=== PATIENT | male | born 1945 | race Caucasian/White ===

== ENCOUNTER 2019-07-17 09:13 | Outpatient (CLI) | payer MEDICARE, SELFPAY ==
[2019-07-17 09:40] LABS: Hematocrit 41.5 % (42.0-52.0); Mean Corpuscular HGB Conc 33.7 g/dl (32-36); Mean Corpuscular Hemoglobin 32.1 pg (26-34); Mean Corpuscular Volume 95.2 fl (80-100); Mean Platelet Volume 9.6 fl (7.4-10.4); Platelet Count Result 176 k/mm3 (150-375); Red Blood Count 4.36 M/mm3 (4.6-6.20); Red Cell Distribution Width 13.7 % (11.5-14.5)
[2019-07-17 10:06] LABS: Alanine Aminotransferase 17 U/L (4-50); Alkaline Phosphatase 53 U/L (38-126); Aspartate Amino Transferase 22 U/L (17-59); Bilirubin,Total 0.2 mg/dL (0.2-1.3); Blood Urea Nitrogen 14 mg/dL (9-20); Carbon Dioxide 29 mmol/L (22-30); Chloride 106 mmol/L (98-107); Cholesterol 139 mg/dL (0-200); Estimated Glomerular Filt Rate > 60; Glucose 111 mg/dL (75-110); HDL Direct 38 mg/dL; Potassium 4.3 mmol/L (3.4-5.0); Sodium 139 mmol/L (137-145); Triglycerides 119 mg/dL (<150)
[2019-07-17 10:17] LABS: LDL Cholesterol Direct 81 mg/dL
[2019-07-17 10:35] LABS: Prostate Specific Antigen 0.4 ng/mL (< OR = 4.0)
== END 2019-07-17 09:14 | disposition home or self-care (01) ==
PROVIDERS: PCP Internal Medicine; Visit Provider Physician Assistant
DX: R53.83 Other fatigue (principal); R35.1 Nocturia; E78.5 Hyperlipidemia, unspecified
CPT/HCPCS: 36415; 80053; 80061; 84153; 84443; 85027

== ENCOUNTER 2019-08-26 08:16 | Outpatient (CLI) | payer MEDICARE, SELFPAY ==
--- NOTE | ~2019-08-26 | US_ITS ---
EXAMINATION: US art doppler w press LE BI DATE: 08/26/2019 08:55 INDICATION: Claudication TECHNIQUE: Segmental pressures and plethysmographic and Doppler waveforms of the brachial and lower e xtremity arteries were obtained. COMPARISON: None. FINDINGS: Right and left brachial artery pressures of 123 mm Hg and 124 mm Hg, respectively, are concordant (no rmal difference <= 30 mmHg). The right and left high-thigh pressure indices are 1.11 and 1.17, respec tively (normal > 1.2). The right ankle-brachial index (AIDEN) is 1.15 (normal >= 0.9-1). The right great toe-brachial index (T BI) is 0.53 (normal >= 0.6-0.8). The right lower extremity segmental pressure gradients are normal (n ormal gradients <= 20-30 mmHg between adjacent levels on the same leg or the same levels on the two l egs). Arterial waveforms are triphasic at the right common femoral and superficial femoral arteries a nd biphasic at the remaining arteries with brisk systolic upstrokes throughout. The left AIDEN is 1.31. The left TBI is 0.95. The left lower extremity segmental pressure gradients are increased between the left dorsalis pedis artery and the more proximal [id number] left popliteal artery, the left posterior tibial artery and the contralateral right dorsalis pedis artery. Arterial waveforms are triphasic at the left common femoral and superficial femoral arteries and biphasic in the remaining arteries with brisk systolic upstrokes throughout. IMPRESSION: 1. Mild arterial occlusive disease to the bilateral lower limbs with normal bilateral ABIs but minima lly decreased bilateral high thigh pressure indices and mildly decreased right toe brachial index. Reviewed, dictated and finalized at location A. IMPRESSION: 1. Mild arterial occlusive disease to the bilateral lower limbs with normal sanchez ateral ABIs but minimally decreased bilateral high thigh pressure indices and m ildly decreased right toe brachial index.
== END 2019-08-26 08:17 | disposition home or self-care (01) ==
PROVIDERS: PCP Internal Medicine; Visit Provider Internal Medicine Cardiovascular Disease
DX: I73.9 Peripheral vascular disease, unspecified (principal)
CPT/HCPCS: 93923

== ENCOUNTER 2020-01-13 08:40 | Outpatient (CLI) | payer MEDICARE, SELFPAY ==
[2020-01-13 09:00] LABS: Basophils Absolute Auto 0.1 K/mm3 (0.0-0.1); Basophils Percent Auto 0.8 % (0.2-1.2); Eosinophils Absolute Auto 0.3 K/mm3 (0-0.3); Eosinophils Percent Auto 5.1 % (0-4.4); Hematocrit 42.3 % (42.0-52.0); Hemoglobin 14.4 g/dL (14.0-18.0); Immature Granulocyte Absolute 0.01 K/mm3 (0.00-0.031); Immature Granulocyte Percent A 0.2 % (0-0.5); Lymphocytes Absolute Auto 2.14 K/mm3 (0.9-3.2); Lymphocytes Percent Auto 36.1 % (18.3-44.2); Mean Corpuscular Hemoglobin 32.4 pg (26-34); Mean Corpuscular Volume 95.1 fl (80-100); Mean Platelet Volume 9.1 fl (7.4-10.4); Monocytes Absolute Auto 0.5 K/mm3 (0.1-0.6); Monocytes Percent Auto 9.1 % (2.6-8.5); Neutrophils Absolute Auto 2.9 K/mm3 (1.3-6.7); Neutrophils Percent Auto 48.7 % (45.5-73.1); Platelet Count Result 177 k/mm3 (150-375); Red Blood Count 4.45 M/mm3 (4.6-6.20); Red Cell Distribution Width 13.1 % (11.5-14.5); White Blood Count 5.9 K/mm3 (4.5-10.0)
[2020-01-13 09:19] LABS: Alanine Aminotransferase 23 U/L (4-50); Alkaline Phosphatase 49 U/L (38-126); Anion Gap 6 mmol/L (8-16); Aspartate Amino Transferase 24 U/L (17-59); Bilirubin,Total 0.4 mg/dL (0.2-1.3); Blood Urea Nitrogen 13 mg/dL (9-20); Calcium 9.6 mg/dL (8.4-10.2); Carbon Dioxide 28 mmol/L (22-30); Chloride 106 mmol/L (98-107); Cholesterol 105 mg/dL (0-200); Estimated Glomerular Filt Rate 59; Glucose 123 mg/dL (75-110); HDL Direct 35 mg/dL; Potassium 4.4 mmol/L (3.4-5.0); Sodium 140 mmol/L (137-145); Triglycerides 111 mg/dL (<150)
[2020-01-13 09:29] LABS: LDL Cholesterol Direct 46 mg/dL
[2020-01-13 10:24] LABS: Folic Acid 6.6 ng/mL (2.76->20)
== END 2020-01-13 08:41 | disposition home or self-care (01) ==
PROVIDERS: PCP Internal Medicine; Visit Provider Internal Medicine
DX: R73.9 Hyperglycemia, unspecified (principal); I10 Essential (primary) hypertension; R53.83 Other fatigue
CPT/HCPCS: 36415; 80053; 80061; 82607; 82746; 83036; 84443; 85025

== ENCOUNTER 2020-07-06 09:08 | Outpatient (CLI) | payer MEDICARE, SELFPAY ==
[2020-07-06 09:52] LABS: Basophils Absolute Auto 0.1 K/mm3 (0.0-0.1); Basophils Percent Auto 0.8 % (0.2-1.2); Eosinophils Absolute Auto 0.3 K/mm3 (0-0.3); Eosinophils Percent Auto 4.8 % (0-4.4); Hematocrit 47.1 % (42.0-52.0); Hemoglobin 15.3 g/dL (14.0-18.0); Immature Granulocyte Absolute 0.02 K/mm3 (0.00-0.031); Immature Granulocyte Percent A 0.3 % (0-0.5); Lymphocytes Absolute Auto 2.18 K/mm3 (0.9-3.2); Lymphocytes Percent Auto 36.3 % (18.3-44.2); Mean Corpuscular HGB Conc 32.5 g/dl (32-36); Mean Corpuscular Hemoglobin 31.2 pg (26-34); Mean Corpuscular Volume 96.1 fl (80-100); Mean Platelet Volume 9.9 fl (7.4-10.4); Monocytes Absolute Auto 0.6 K/mm3 (0.1-0.6); Monocytes Percent Auto 9.3 % (2.6-8.5); Neutrophils Absolute Auto 2.9 K/mm3 (1.3-6.7); Neutrophils Percent Auto 48.5 % (45.5-73.1); Platelet Count Result 202 k/mm3 (150-375); Red Cell Distribution Width 13.2 % (11.5-14.5)
[2020-07-06 10:00] LABS: Hemoglobin A1C 6.7 % (<5.7)
[2020-07-06 10:02] LABS: Alanine Aminotransferase 23 U/L (4-50); Albumin Level 4.4 g/dL (3.5-5.1); Alkaline Phosphatase 56 U/L (38-126); Anion Gap 4 mmol/L (8-16); Aspartate Amino Transferase 23 U/L (17-59); Bilirubin,Total 0.3 mg/dL (0.2-1.3); Blood Urea Nitrogen 17 mg/dL (9-20); Calcium 10.4 mg/dL (8.4-10.2); Carbon Dioxide 31 mmol/L (22-30); Chloride 106 mmol/L (98-107); Cholesterol 148 mg/dL (0-200); Estimated Glomerular Filt Rate 59; Glucose 125 mg/dL (75-110); HDL Direct 45 mg/dL; Potassium 4.5 mmol/L (3.4-5.0); Sodium 141 mmol/L (137-145); Triglycerides 151 mg/dL (<150)
[2020-07-06 10:13] LABS: LDL Cholesterol Direct 81 mg/dL
[2020-07-06 10:33] LABS: Prostate Specific Antigen 0.6 ng/mL (< OR = 4.0)
[2020-07-06 11:07] LABS: Folic Acid 5.4 ng/mL (2.76->20)
== END 2020-07-06 09:09 | disposition home or self-care (01) ==
PROVIDERS: PCP Internal Medicine; Visit Provider Internal Medicine
DX: R53.83 Other fatigue (principal); R73.9 Hyperglycemia, unspecified; E78.5 Hyperlipidemia, unspecified; Z12.5 Encounter for screening for malignant neoplasm of prostate
CPT/HCPCS: 36415; 80053; 80061; 82607; 82746; 83036; 84153; 84443; 85025; G0103

== ENCOUNTER 2020-09-26 14:00 | Observation (INO) | payer MEDICARE, SELFPAY ==
[2020-09-26] VITALS (9 sets, daily range): BP systolic 125–154; BP diastolic 47–89; PULSE 54–94; RESP 16–26; TEMP 36.8–36.9; O2SAT 96–100
--- NOTE | ~2020-09-26 | XR_ITS ---
EXAMINATION: XR chest 2V EXAM DATE: 09/26/2020 14:11 INDICATION: Chest pain, history of heart stents. TECHNIQUE: Frontal and lateral projections of the chest obtained and reviewed. Comparison is made to prior examination from 04/04/2016. FINDINGS: Moderate hyperinflation. No confluent consolidation, pneumothorax or pleural effusion susp ected. Cardiomediastinal silhouette is normal. There are no osseous abnormalities identified. IMPRESSION: Moderate hyperinflation. Reviewed, dictated and finalized at location B. IMPRESSION: Moderate hyperinflation.
--- NOTE | ~2020-09-26 | NM_ITS ---
EXAMINATION: NM kyaw stress w perfusion DATE: 09/27/2020 12:56 INDICATION: Chest pain TECHNIQUE: Rest images were obtained following intravenous administration of 9.67 mCi Tc99m tetrofosm in (Myoview). The patient was infused intravenously with Lexiscan (Regadenoson). Then, 31.56 mCi Tc99 m tetrofosmin (Myoview) was administered intravenously, and stress images were obtained. Data was rec onstructed into short axis and horizontal and vertical long axis SPECT images. Gated SPECT images wer e also obtained. COMPARISON: None. FINDINGS: There is no definite reversible or fixed perfusion abnormality to suggest ischemia or infar ction. There is normal left ventricular chamber size, wall motion and ejection fraction. Left ventr icular ejection fraction measures >70%. IMPRESSION: 1. Normal myocardial perfusion at rest and during stress. 2. Left ventricular ejection fraction measuring >70%. Reviewed, dictated and finalized at location A.
--- NOTE | 2020-09-26 14:01 | ECG_ITS ---
Measurements Intervals [place] Rate: 89 P: 61 MO: 158 QRS: -80 QRSD: 78 T: 52 QT: 338 QTc: 413 Interpretive Statements SINUS RHYTHM LEFT ANTERIOR FASCICULAR BLOCK EARLY PRECORDIAL R/S TRANSITION ABNORMAL ECG Electronically Signed On 09-26-2020 14:58:28 CDT by Kobe Mack D.O.
[2020-09-26 14:16] LABS: Basophils Absolute Auto 0.1 K/mm3 (0.0-0.1); Basophils Percent Auto 0.7 % (0.2-1.2); Eosinophils Absolute Auto 0.1 K/mm3 (0-0.3); Eosinophils Percent Auto 1.2 % (0-4.4); Hematocrit 48.3 % (42.0-52.0); Hemoglobin 16.2 g/dL (14.0-18.0); Immature Granulocyte Absolute 0.03 K/mm3 (0.00-0.031); Immature Granulocyte Percent A 0.3 % (0-0.5); Lymphocytes Absolute Auto 2.96 K/mm3 (0.9-3.2); Lymphocytes Percent Auto 28.2 % (18.3-44.2); Mean Corpuscular HGB Conc 33.5 g/dl (32-36); Mean Corpuscular Hemoglobin 31.5 pg (26-34); Mean Corpuscular Volume 93.8 fl (80-100); Mean Platelet Volume 9.9 fl (7.4-10.4); Monocytes Absolute Auto 0.7 K/mm3 (0.1-0.6); Monocytes Percent Auto 6.9 % (2.6-8.5); Neutrophils Absolute Auto 6.6 K/mm3 (1.3-6.7); Neutrophils Percent Auto 62.7 % (45.5-73.1); Platelet Count Result 209 k/mm3 (150-375); Red Blood Count 5.15 M/mm3 (4.6-6.20); Red Cell Distribution Width 13.1 % (11.5-14.5); White Blood Count 10.5 K/mm3 (4.5-10.0)
[2020-09-26 14:32] LABS: Anion Gap 11 mmol/L (8-16); Blood Urea Nitrogen 15 mg/dL (9-20); Calcium 9.9 mg/dL (8.4-10.2); Carbon Dioxide 23 mmol/L (22-30); Chloride 104 mmol/L (98-107); Estimated CRCL calculation 48 ml/min; Estimated Glomerular Filt Rate 59; Glucose 122 mg/dL (65-110); Potassium 3.9 mmol/L (3.4-5.0); Sodium 138 mmol/L (137-145)
[2020-09-26 14:43] LABS: Troponin I < 0.012 ng/mL (0.000-0.034)
[2020-09-26 14:46] LABS: INR 0.9; Prothrombin Time 12.4 Seconds (11.1-14.7)
[2020-09-26 14:47] LABS: Partial Thromboplastin Time 32.7 SECONDS (22.3-36.8)
--- NOTE | 2020-09-26 17:59 | ED.CHESTPAIN ---
HPI - Chest Pain General Chief Complaint: Chest Pain Stated Complaint: chest tightness Time Seen by Provider: 09/26/20 17:28 Source: patient Mode of arrival: ambulatory Limitations: no limitations History of Present Illness HPI narrative: This is a 75 year old male that presents to the ER for an episode of chest pain today. Reports he was mowing the lawn. He started to have substernal chest tightness. This lasted for about 10 minutes and was relieved with rest. His medical technologist prn is Dr. Glover. His last stress test was in 2015. He does have history of a stent placed in 2005. Patient denies any current chest pain. Denies fever, cough, shortness of breath, nausea or vomiting. Related Data Home Medications Medication Instructions Recorded Confirmed aspirin 81 mg tablet,delayed 81 mg PO DAILY 01/17/19 07/14/20 release cholecalciferol (vitamin D3) 1,250 50,000 unit PO WEEKLY 01/17/19 07/14/20 mcg (50,000 unit) capsule clopidogrel 75 mg tablet 75 mg PO DAILY 01/17/19 07/14/20 fluticasone propionate 50 2 spray NASAL DAILY 01/17/19 07/14/20 mcg/actuation nasal spray,suspension garlic 500 mg capsule 500 mg PO DAILY 01/17/19 07/14/20 hydrocortisone 1 % topical cream 1 applic TOPICAL BID PRN 01/17/19 07/14/20 nitroglycerin 0.4 mg sublingual 0.4 mg SUBLINGUAL Q5M PRN 01/17/19 07/14/20 tablet omega-3 fatty acids 1,000 mg 1,000 mg PO DAILY 01/17/19 07/14/20 capsule rosuvastatin 40 mg tablet 40 mg PO DAILY 01/17/19 07/14/20 Allergies Allergy/AdvReac Type Severity Reaction Status Date / Time bacitracin Allergy Intermediate blisters Verified 07/13/20 09:58 bupropion Allergy Intermediate Rash Verified 07/13/20 09:58 neomycin Allergy Intermediate blisters Verified 07/13/20 09:58 polymyxin B Allergy Intermediate blisters Verified 07/13/20 09:58 latex Allergy Unknown blisters Verified 07/13/20 09:58 BUPROPION HCL Allergy Intermediate SWELLING Uncoded 07/13/20 09:58 Review of Systems Review of Systems: Narrative: CONSTITUTIONAL: Denies fever CARDIOVASCULAR: Reports chest pain. Denies edema. RESPIRATORY: Denies cough or dyspnea. GASTROINTESTINAL: Denies nausea, vomiting All systems reviewed & are unremarkable except as noted in HPI and below PMFSH Past Medical History Medical History (Updated 09/26/20 @ 18:13 by Jamila Liu PA-C) Coronary artery disease Dyslipidemia Essential (primary) hypertension Tobacco abuse Family History Family History Mother Family history of Alzheimer's disease Patient's mother is Sibling Family history of diabetes mellitus in first degree relative Patient's brother is Father Patient's father is Family history of Alzheimer's disease Social History Social History Smoking packs per day: 1 Smoking cigarettes per day: 20.0 Smoking status: Current every day smoker Tobacco type: cigarettes Second hand tobacco smoke exposure: No Alcohol intake: never Substance use: never Exam Narrative: Exam Narrative: GENERAL: Well-appearing, well-nourished, and in no acute distress. HEAD: Normocephalic, atraumatic. EYES: EOMI. ENT: Mucous membranes moist. Oropharynx without tonsillar hypertrophy exudate or other lesions. NECK: Supple. No adenopathy or masses. No carotid bruits or JVD CHEST: Clear to auscultation. No respiratory distress. No wheezes rales or rhonchi HEART: Regular rate and rhythm. No murmur heard. Normal peripheral pulses. EXTREMITIES: Normal range of motion. No edema. SKIN: Warm, dry, no rash. NEURO: No focal deficits. Alert and oriented x3. PSYCH: Normal mood and affect Course Consultations Consultation #1: Spoke with Dr. Mack about patient and work-up who agrees with admission for further cardiac workup Date: 09/26/20 Time: 18:30 Vital Signs Vital signs: Vital Signs Temperature 98.3 F 09/26/20 14:
[2020-09-26 18:06] LABS: Troponin I 0.017 ng/mL (0.000-0.034)
[2020-09-26 22:48] LABS: Troponin I 0.038 ng/mL (0.000-0.034)
[2020-09-27] VITALS (11 sets, daily range): BP systolic 109–118; BP diastolic 59–76; PULSE 48–97; RESP 12–18; TEMP 36.3–37; O2SAT 98–100; BMI 26.6
--- NOTE | 2020-09-27 | ECHO_ITS ---
Patient Info Name: Des Lockwood Age: 75 years : 1945 Gender: Male Ht: 69 in Wt: 185 lbs BSA: 2.04 m2 HR: 50 bpm BP: 109 / 59 mmHg Technical Quality: Fair Exam Date: 09/27/2020 8:25 AM Exam Location: [facility] Pulmonary Patient Status: Outpatient Admit Date: 09/26/2020 Staff Ordering Physician: Kobe Mack DO Swatch Cutter: Viola Engel RDCS Attending Provider: Kobe aMck DO Referring Physician: Frederick WILD; Exam Type: CA echo doppler color flow Study Info Indications R07.89 - Other chest pain Complete two-dimensional, color flow and Doppler transthoracic echocardiogram is performed. Summary 1. Complete two-dimensional, color flow and Doppler transthoracic echocardiogram is performed. 2. Left ventricular chamber dimension is normal. 3. Left ventricular systolic function is normal, estimated at 60-65%. 4. The left ventricular diastolic function is normal. 5. E/e' 9 is minimally elevated. 6. Global longitudinal strain is normal at -17.2%. 7. No pulmonary hypertension, estimated pulmonary arterial systolic pressure is 16 mmHg. Left Ventricle E/e' 9 is minimally elevated. Global longitudinal strain is normal at -17.2%. Left ventricular chamber dimension is normal. Left ventricular systolic function is normal, estimated at 60-65%. The left ventricular diastolic function is normal. Right Ventricle Right ventricular chamber dimension is normal. Right ventricular systolic function is normal. Left Atria Left atrial chamber dimension is normal. Right Atria Right atrial chamber dimension is normal. Aortic Valve The aortic valve is trileaflet. There is no aortic valve stenosis. There is no aortic valve regurgitation. Pulmonic Valve There is no pulmonic regurgitation. Mitral Valve There is no mitral valve stenosis. There is no mitral valve regurgitation. Tricuspid Valve There is no tricuspid valve regurgitation. No pulmonary hypertension, estimated pulmonary arterial systolic pressure is 16 mmHg. Pericardium/Pleural There is no pericardial effusion. Inferior Vena Cava Normal inferior vena cava with >50% collapse upon inspiration consistent with normal right atrial pressure, 5 mmHg. Aorta The aortic root size at the sinus of Valsalva is normal. Left Ventricular Outflow Tract Name Value Normal LVOT 2D LVOT Diameter 2.0 cm LVOT Doppler LVOT Peak Gradient 2 mmHg LVOT Mean Gradient 1 mmHg LVOT VTI 19 cm LVOT VTI/AV VTI Ratio 0.9 LVOT Stroke Volume 58 ml LVOT CO 3.1 l/min LVOT CI 1.5 l/min/m2 Pulmonic Valve Name Value Normal RVOT Doppler RVOT Peak Gradient 1 mmHg
--- NOTE | 2020-09-27 | EST_ITS ---
Patient Info Name: Des Lockwood Age: 75 years : 1945 Gender: Male Ht: 69 in Wt: 178 lbs BSA: 2.00 m2 HR: 50 bpm BP: 133 / 72 mmHg Exam Date: 09/27/2020 11:47 AM Exam Location: [facility] Stress Patient Status: Outpatient Admit Date: 09/26/2020 Staff Ordering Physician: Kobe Mack DO Attending Provider: Kobe Mack DO Exercise Technologist: Vesna Shine CT Exercise Physician: Kobe Mack DO Exam Type: CA stress kyaw w NM Study Info A regadenoson stress test was performed. Summary 1. 1. Negative lexiscan stress test for ischemic ST changes by ECG criteria. 2. 2. Stable hemodynamics throughout the test. 3. 3. Nuclear scan to follow and will be reported separately. Please correlate with it. 4. 4. Patiet informed of the above results. Protocol: Lexiscan Stress ECG Details Stage: REST Duration (min): 1 min : 49 sec HR (bpm): 51 SBP (mmHg): 133 DBP (mmHg): 72 Stage: REST Duration (min): 4 min : 39 sec HR (bpm): 68 SBP (mmHg): 133 DBP (mmHg): 72 Stage: STAGE 1 Duration (min): 0 min : 59 sec HR (bpm): 62 SBP (mmHg): 137 DBP (mmHg): 75 Stage: RECOVERY Duration (min): 1 min : 0 sec HR (bpm): 92 SBP (mmHg): 137 DBP (mmHg): 75 Stage: RECOVERY Duration (min): 2 min : 0 sec HR (bpm): 91 SBP (mmHg): 136 DBP (mmHg): 73 Stage: RECOVERY Duration (min): 2 min : 9 sec HR (bpm): 93 SBP (mmHg): 136 DBP (mmHg): 73 Rest HR: 68 bpm Peak HR: 96 bpm Rest Sys BP: 133 mmHg Peak Sys BP: 137 mmHg Max Pred HR: 146 bpm % Max Pred HR: 66 % Target HR: 124 bpm Max RPP: 13,152 bpm*mmHg Termination Reason: Completed protocol Cardiac Symptoms: Shortness of breath Total Time: 1 min : 0 sec Rest Roberto BP: 72 mmHg Peak Roberto BP: 75 mmHg Total Dose: 0.4 mg Resting ECG Sinus rhythm. Stress ECG No ST changes. Arrhythmias None. Report Signatures
[2020-09-27] MEDS: LOSARTAN POTASSIUM 50 MG TABLET PO (00:58)
[2020-09-27] MEDS: ROSUVASTATIN 10 MG TABLET 40 MG PO (00:58)
[2020-09-27] MEDS: AZELASTINE HCL NASAL 0.1% 137 MCG/SPR 30 ML BTL 2 SPRAY NASAL ×2 (00:59→09:32)
--- NOTE | 2020-09-27 01:06 | PC.NURSE ---
Pt having no c/o cp at this time. Has not had betablocker today, but HR is hovering arund 48-49. Will hold and monitor.
--- NOTE | 2020-09-27 02:54 | PC.NURSE ---
This patient, Des Lockwood Jr., was admitted to IMU Room 209-01. Patient/family oriented to hospital policies and general routines including ID bracelet, bed and alarms, visiting hours, pain management, procedures, bathroom and other care routines, personal items, smoking policy, room service/diet, and visiting hours. Information on how to activate the Rapid Response Team has been discussed. Patient/Family are encouraged to report perceived risks to care and to ask questions if they do not understand what they are told or what they should do.
--- NOTE | 2020-09-27 07:46 | PM.IMHP ---
H&P: HPI History of Present Illness Date/Time: 09/27/20 07:46 Reason for admit: Chest pain. 75 yr old man who's PCP is Dr. Jimenez and my regular cardiology patient is admitted for chest pain. He has a history of PAD, hypertension, dyslipidemia, CAD. States yesterday while mowing grass in the heat he noted chest tightness across his chest. It lasted about 10 minutes but he was concerned so he came in to ER. No recurrence since admission. Troponin peaked at 0.038 and came down. EKG shows no acute ST changes. CXR shows hyperinflation. Reports he can walk 2 miles without any problems, but more than that and he may notice leg cramps. Admits to smoking 1 ppd. Denies chest pain, sob, orthopnea, PND, edema, palpitations, dizziness. Cardiovascular Procedures Veterinary Medicine Scientist:: 10/03/05 Had DE. LAD stented. Electrophysiology:: 09/27/20 EKG: Sinus rhythm, LAFB. 04/14/20 EKG: Sinus rhythm. Stress Tests:: 08/26/19 Arterial duplex/AIDEN: Right AIDEN 1.1, TBI 0.53 [0.6-0.8]. Left AIDEN 1.3, TBI 0.75. Decreased bilateral thigh pressure indices s/o PAD. Chief Complaint: Chest pain Review of Systems Review of Systems: All systems reviewed & are unremarkable except as noted in HPI and below Constitutional: Constitutional: Reports as per HPI, Denies chills and Denies fever(s) Cardiovascular: Cardiovascular: Reports as per HPI, Reports chest pain, Reports claudication, Denies lightheadedness and Denies dyspnea on exertion Respiratory: Respiratory: Reports as per HPI and Denies dyspnea Gastrointestinal: Gastrointestinal: Reports as per HPI and Denies abdominal pain Genitourinary: Genitourinary: Reports as per HPI and Denies dysuria Musculoskeletal: Musculoskeletal: Reports as per HPI Neurologic: Reports as per HPI, Denies dizziness and Denies syncope [facility] Past Medical History Medical History (Updated 09/27/20 @ 07:53 by Kobe Mack DO) Coronary artery disease Dyslipidemia Essential (primary) hypertension Tobacco abuse Family History Family History Mother Family history of Alzheimer's disease Patient's mother is Sibling Family history of diabetes mellitus in first degree relative Patient's brother is Father Patient's father is Family history of Alzheimer's disease Social History Social History Smoking packs per day: 1 Smoking cigarettes per day: 20.0 Years smoked: 50 Smoking pack-years: 50.00 Smoking status: Current every day smoker Tobacco type: cigarettes Second hand tobacco smoke exposure: No Alcohol intake: former Substance use: never Substance use type: marijuana Other substance usage details: used to be a heavy drinker, no drinks in 7-8 years Last use: 1 month ago Spiritual care concerns: No Meds Home Medications and Allergies Home Medications Medication Instructions Recorded Confirmed Type aspirin 81 mg tablet,delayed 81 mg PO QPM 01/17/19 09/26/20 History release hydrocortisone 1 % topical cream 1 applic TOPICAL BID PRN 01/17/19 09/26/20 History nitroglycerin 0.4 mg sublingual 0.4 mg SUBLINGUAL Q5M PRN 01/17/19 09/26/20 History tablet omega-3 fatty acids 1,000 mg 1,000 mg PO DAILY 01/17/19 09/26/20 History capsule rosuvastatin 40 mg tablet 40 mg PO QPM 01/17/19 09/26/20 History sildenafil (pulm.hypertension) 20 See Rx Instructions PO DAILY PRN 06/03/19 09/26/20 Rx mg tablet #90 tablet azelastine 137 mcg (0.1 %) nasal 2 spray NASAL Q12H #30 ml 01/09/20 09/26/20 Rx spray aerosol cholecalciferol (vitamin D3) 5,000 unit PO DAILY 09/26/20 09/26/20 History [Vitamin D3] losartan 50 mg PO QPM 09/26/20 09/26/20 History metoprolol tartrate 25 mg PO QPM 09/26/20 09/26/20 History Allergies Allergy/AdvReac Type Severity Reaction Status Date / Time alprazolam Allergy Intermediate Swelling Verified 09/26/20 22:49 bacitracin A
[2020-09-27] MEDS: CHOLECALCIFEROL 1,000 UNITS TABLET 5000 UNITS PO (09:32)
[2020-09-27] MEDS: CLOPIDOGREL BISULFATE 75 MG TABLET PO (09:32)
[2020-09-27] MEDS: OMEGA 3 POLYUNSAT FATTY ACIDS 1 GM CAP PO (09:37)
== END 2020-09-27 16:00 | disposition home or self-care (01) ==
LOC: ANHED 18:29 → ANHIMU 19:26 → ANHICU 22:58 → ANHIMU 23:09
PROVIDERS: Admitting Provider Internal Medicine Cardiovascular Disease; Emergency Provider Emergency Medicine; PCP Internal Medicine; Visit Provider Internal Medicine Cardiovascular Disease
DX: R07.9 Chest pain, unspecified (principal); I25.10 Atherosclerotic heart disease of native coronary artery without angina pectoris; I10 Essential (primary) hypertension; E78.5 Hyperlipidemia, unspecified; I73.9 Peripheral vascular disease, unspecified; F17.210 Nicotine dependence, cigarettes, uncomplicated; Z95.5 Presence of coronary angioplasty implant and graft; Z79.82 Long term (current) use of aspirin; Z79.02 Long term (current) use of antithrombotics/antiplatelets
CPT/HCPCS: 36415; 71046; 78452; 80048; 84484; 85025; 85610; 85730; 93005; 93017; 93306; 99285; A9270; A9502; G0378; J2785

== ENCOUNTER 2021-01-17 08:47 | Outpatient (CLI) | payer MEDICARE, SELFPAY ==
[2021-01-17 09:13] LABS: Alanine Aminotransferase 18 U/L (4-50); Albumin Level 4.4 g/dL (3.5-5.1); Alkaline Phosphatase 59 U/L (38-126); Anion Gap 8 mmol/L (8-16); Aspartate Amino Transferase 22 U/L (17-59); Bilirubin,Total 0.4 mg/dL (0.2-1.3); Blood Urea Nitrogen 17 mg/dL (9-20); Calcium 9.7 mg/dL (8.4-10.2); Carbon Dioxide 28 mmol/L (22-30); Chloride 102 mmol/L (98-107); Cholesterol 135 mg/dL (0-200); Estimated Glomerular Filt Rate > 60; Glucose 123 mg/dL (65-110); HDL Direct 38 mg/dL; Potassium 4.1 mmol/L (3.4-5.0); Sodium 138 mmol/L (137-145); Triglycerides 101 mg/dL (<150)
[2021-01-17 09:24] LABS: Hemoglobin A1C 6.1 % (<5.7); LDL Cholesterol Direct 75 mg/dL
== END 2021-01-17 08:48 | disposition home or self-care (01) ==
LOC: ANHLAB 08:49
PROVIDERS: PCP Internal Medicine; Visit Provider Internal Medicine
DX: R73.9 Hyperglycemia, unspecified (principal); E78.5 Hyperlipidemia, unspecified
CPT/HCPCS: 36415; 80053; 80061; 83036

== ENCOUNTER 2021-07-10 08:45 | Outpatient (CLI) | payer MEDICARE, SELFPAY ==
[2021-07-10 09:15] LABS: Basophils Percent Auto 0.4 % (0.2-1.2); Eosinophils Absolute Auto 0.1 K/mm3 (0-0.3); Eosinophils Percent Auto 0.9 % (0-4.4); Hematocrit 40.9 % (42.0-52.0); Hemoglobin 13.3 g/dL (14.0-18.0); Immature Granulocyte Absolute 0.03 K/mm3 (0.00-0.031); Immature Granulocyte Percent A 0.4 % (0-0.5); Lymphocytes Absolute Auto 1.85 K/mm3 (0.9-3.2); Lymphocytes Percent Auto 24.7 % (18.3-44.2); Mean Corpuscular HGB Conc 32.5 g/dl (32-36); Mean Corpuscular Hemoglobin 31.7 pg (26-34); Mean Corpuscular Volume 97.6 fl (80-100); Mean Platelet Volume 9.7 fl (7.4-10.4); Monocytes Absolute Auto 0.8 K/mm3 (0.1-0.6); Monocytes Percent Auto 11.2 % (2.6-8.5); Neutrophils Absolute Auto 4.7 K/mm3 (1.3-6.7); Neutrophils Percent Auto 62.4 % (45.5-73.1); Platelet Count Result 210 k/mm3 (150-375); Red Blood Count 4.19 M/mm3 (4.6-6.20); Red Cell Distribution Width 13.1 % (11.5-14.5); White Blood Count 7.5 K/mm3 (4.5-10.0)
[2021-07-10 09:28] LABS: Alanine Aminotransferase 49 U/L (6-50); Albumin Level 4.1 g/dL (3.5-5.1); Alkaline Phosphatase 55 U/L (38-126); Anion Gap 8 mmol/L (8-16); Aspartate Amino Transferase 41 U/L (17-59); Bilirubin,Total 0.4 mg/dL (0.2-1.3); Blood Urea Nitrogen 20 mg/dL (9-20); Calcium 9.5 mg/dL (8.4-10.2); Carbon Dioxide 29 mmol/L (22-30); Chloride 99 mmol/L (98-107); Cholesterol 158 mg/dL (0-200); Estimated Glomerular Filt Rate > 60; Glucose 127 mg/dL (65-110); HDL Direct 31 mg/dL; Potassium 3.8 mmol/L (3.4-5.0); Sodium 136 mmol/L (137-145); Triglycerides 113 mg/dL (<150)
[2021-07-10 09:38] LABS: LDL Cholesterol Direct 85 mg/dL
[2021-07-10 09:44] LABS: Hemoglobin A1C 5.9 % (<5.7)
[2021-07-10 09:58] LABS: Prostate Specific Antigen 0.4 ng/mL (< OR = 4.0)
[2021-07-10 13:50] LABS: Folic Acid 5.4 ng/mL (2.76->20)
== END 2021-07-10 08:46 | disposition home or self-care (01) ==
LOC: ANHLAB 08:50
PROVIDERS: PCP Internal Medicine; Visit Provider Internal Medicine
DX: E78.5 Hyperlipidemia, unspecified (principal); I10 Essential (primary) hypertension; R53.83 Other fatigue; R73.9 Hyperglycemia, unspecified; Z12.5 Encounter for screening for malignant neoplasm of prostate
CPT/HCPCS: 36415; 80053; 80061; 82607; 82746; 83036; 84153; 84443; 85025; G0103

== ENCOUNTER 2022-01-31 07:53 | Outpatient (CLI) | payer MEDICARE, SELFPAY ==
[2022-01-31 08:32] LABS: Basophils Percent Auto 0.8 % (0.2-1.2); Eosinophils Absolute Auto 0.2 K/mm3 (0-0.3); Eosinophils Percent Auto 4.1 % (0-4.4); Immature Granulocyte Absolute 0.01 K/mm3 (0.00-0.031); Immature Granulocyte Percent A 0.2 % (0-0.5); Lymphocytes Absolute Auto 1.85 K/mm3 (0.9-3.2); Lymphocytes Percent Auto 34.8 % (18.3-44.2); Mean Corpuscular HGB Conc 32.6 g/dl (32-36); Mean Corpuscular Hemoglobin 32.2 pg (26-34); Mean Corpuscular Volume 98.9 fl (80-100); Mean Platelet Volume 9.6 fl (7.4-10.4); Monocytes Absolute Auto 0.5 K/mm3 (0.1-0.6); Monocytes Percent Auto 9.6 % (2.6-8.5); Neutrophils Absolute Auto 2.7 K/mm3 (1.3-6.7); Neutrophils Percent Auto 50.5 % (45.5-73.1); Platelet Count Result 174 k/mm3 (150-375); Red Blood Count 4.35 M/mm3 (4.6-6.20); Red Cell Distribution Width 14.2 % (11.5-14.5); White Blood Count 5.3 K/mm3 (4.5-10.0)
[2022-01-31 08:40] LABS: Alanine Aminotransferase 26 U/L (6-50); Albumin Level 4.1 g/dL (3.5-5.1); Alkaline Phosphatase 53 U/L (38-126); Anion Gap 6 mmol/L (8-16); Aspartate Amino Transferase 26 U/L (17-59); Bilirubin,Total 0.3 mg/dL (0.2-1.3); Blood Urea Nitrogen 13 mg/dL (9-20); Carbon Dioxide 29 mmol/L (22-30); Chloride 105 mmol/L (98-107); Cholesterol 167 mg/dL (0-200); Estimated Glomerular Filt Rate > 60; Glucose 118 mg/dL (65-110); HDL Direct 40 mg/dL; Potassium 4.4 mmol/L (3.4-5.0); Sodium 140 mmol/L (137-145); Triglycerides 105 mg/dL (<150)
[2022-01-31 08:44] LABS: Hemoglobin A1C 6.3 % (<5.7)
[2022-01-31 08:47] LABS: Iron 88 ug/dL (49-181)
[2022-01-31 08:51] LABS: LDL Cholesterol Direct 94 mg/dL
[2022-01-31 08:56] LABS: Percent Iron Saturation 31 % (20-50)
[2022-01-31 09:45] LABS: Folic Acid 3.6 ng/mL (2.76->20)
== END 2022-01-31 07:54 | disposition home or self-care (01) ==
LOC: ANHLAB 07:55
PROVIDERS: PCP Internal Medicine; Visit Provider Internal Medicine
DX: R73.9 Hyperglycemia, unspecified (principal); R53.83 Other fatigue; E78.5 Hyperlipidemia, unspecified; D64.9 Anemia, unspecified
CPT/HCPCS: 36415; 80053; 80061; 82607; 82746; 83036; 83540; 83550; 84443; 85025

== ENCOUNTER 2022-07-27 07:54 | Outpatient (CLI) | payer MEDICARE, SELFPAY ==
[2022-07-27 09:00] LABS: Basophils Absolute Auto 0.1 K/mm3 (0.0-0.1); Basophils Percent Auto 0.8 % (0.2-1.2); Eosinophils Absolute Auto 0.2 K/mm3 (0-0.3); Eosinophils Percent Auto 3.7 % (0-4.4); Hemoglobin 14.6 g/dL (14.0-18.0); Immature Granulocyte Absolute 0.02 K/mm3 (0.00-0.031); Immature Granulocyte Percent A 0.3 % (0-0.5); Lymphocytes Absolute Auto 2.02 K/mm3 (0.9-3.2); Lymphocytes Percent Auto 32.1 % (18.3-44.2); Mean Corpuscular HGB Conc 33.2 g/dl (32-36); Mean Corpuscular Hemoglobin 32.2 pg (26-34); Mean Corpuscular Volume 96.9 fl (80-100); Mean Platelet Volume 9.4 fl (7.4-10.4); Monocytes Absolute Auto 0.6 K/mm3 (0.1-0.6); Monocytes Percent Auto 8.9 % (2.6-8.5); Neutrophils Absolute Auto 3.4 K/mm3 (1.3-6.7); Neutrophils Percent Auto 54.2 % (45.5-73.1); Platelet Count Result 190 k/mm3 (150-375); Red Blood Count 4.54 M/mm3 (4.6-6.20); Red Cell Distribution Width 13.7 % (11.5-14.5); White Blood Count 6.3 K/mm3 (4.5-10.0)
[2022-07-27 09:17] LABS: Hemoglobin A1C 5.7 % (<5.7)
[2022-07-27 09:20] LABS: Alanine Aminotransferase 18 U/L (6-50); Albumin Level 4.1 g/dL (3.5-5.1); Alkaline Phosphatase 55 U/L (38-126); Anion Gap 2 mmol/L (8-16); Aspartate Amino Transferase 22 U/L (17-59); Bilirubin,Total 0.3 mg/dL (0.2-1.3); Blood Urea Nitrogen 15 mg/dL (9-20); Calcium 9.4 mg/dL (8.4-10.2); Carbon Dioxide 33 mmol/L (22-30); Chloride 105 mmol/L (98-107); Cholesterol 172 mg/dL (0-200); Estimated Glomerular Filt Rate > 60; Glucose 112 mg/dL (65-110); HDL Direct 37 mg/dL; Magnesium 2.1 mg/dL (1.6-2.3); Potassium 5.1 mmol/L (3.4-5.0); Sodium 140 mmol/L (137-145); Triglycerides 153 mg/dL (<150)
[2022-07-27 09:22] LABS: Iron 87 ug/dL (49-181)
[2022-07-27 09:31] LABS: LDL Cholesterol Direct 108 mg/dL
[2022-07-27 09:33] LABS: Percent Iron Saturation 33 % (20-50)
[2022-07-27 09:52] LABS: Prostate Specific Antigen 0.9 ng/mL (< OR = 4.0)
[2022-07-27 10:27] LABS: Folic Acid 3.8 ng/mL (2.76->20)
== END 2022-07-27 07:55 | disposition home or self-care (01) ==
PROVIDERS: PCP Internal Medicine; Visit Provider Internal Medicine
DX: E78.5 Hyperlipidemia, unspecified (principal); I10 Essential (primary) hypertension; R53.83 Other fatigue; R73.9 Hyperglycemia, unspecified; D64.9 Anemia, unspecified; Z12.5 Encounter for screening for malignant neoplasm of prostate
CPT/HCPCS: 36415; 80053; 80061; 82607; 82746; 83036; 83540; 83550; 83735; 84153; 84443; 85025; G0103

== ENCOUNTER 2023-02-08 07:51 | Outpatient (CLI) | payer MEDICARE, SELFPAY ==
[2023-02-08 08:55] LABS: Alanine Aminotransferase 17 U/L (6-50); Albumin Level 4.3 g/dL (3.5-5.1); Alkaline Phosphatase 70 U/L (38-126); Anion Gap 4 mmol/L (8-16); Aspartate Amino Transferase 24 U/L (17-59); Bilirubin,Total 0.6 mg/dL (0.2-1.3); Blood Urea Nitrogen 19 mg/dL (9-20); Calcium 9.8 mg/dL (8.4-10.2); Carbon Dioxide 30 mmol/L (22-30); Chloride 104 mmol/L (98-107); Estimated Glomerular Filt Rate > 60; Glucose 114 mg/dL (65-110); Potassium 4.5 mmol/L (3.4-5.0); Sodium 138 mmol/L (137-145)
[2023-02-08 10:08] LABS: Hemoglobin A1C 5.7 % (<5.7)
== END 2023-02-08 07:52 | disposition home or self-care (01) ==
PROVIDERS: PCP Internal Medicine; Visit Provider Physician Assistant
DX: E87.5 Hyperkalemia (principal); R73.9 Hyperglycemia, unspecified
CPT/HCPCS: 36415; 80053; 83036

== ENCOUNTER 2023-05-14 13:33 | Emergency (ER) | payer MEDICARE, SELFPAY ==
[2023-05-14 13:44] VITALS: BP 118/77; PULSE 92; RESP 16; TEMP 37.3; O2SAT 98
--- NOTE | 2023-05-14 13:52 | ED.SKABFB ---
HPI - Skin/Abscess/Foreign Bdy General Chief complaint: Skin/Abscess/Foreign Body Stated complaint: Rash Time Seen by Provider: 05/14/23 13:52 Source: patient Mode of arrival: ambulatory Limitations: no limitations History of Present Illness HPI narrative: 77-year-old male presented for complaint of itchy red rash to his back for 2 weeks. Pt has been using Betamethasone cream as prescribed by PCP, his without significant improvement, then he started Medrol Dosepak on 05/07 per PCP. Denies rash to any other locations. Denies lip, tongue, or throat swelling, shortness of breath or wheezing. Denies changes to soap, detergent, lotion, or any other exposures. No one else in the house or any contacts with similar symptoms. Related Data Home Medications Medication Instructions Recorded Confirmed aspirin 81 mg tablet,delayed 81 mg PO QPM 01/17/19 05/14/23 release (Adult Low Dose Aspirin) hydrocortisone 1 % topical cream 1 applic topical BID PRN eczema 01/17/19 05/14/23 (Cortisone (hydrocortisone)) omega-3 fatty acids 1,000 mg 1,000 mg PO DAILY 01/17/19 05/14/23 capsule (Fish Oil Concentrate) cholecalciferol (vitamin D3) 125 5,000 unit PO DAILY 09/26/20 05/14/23 mcg (5,000 unit) tablet (Vitamin D3) vitamin K2 45 mcg capsule 45 mcg PO DAILY 02/07/22 05/14/23 Allergies Allergy/AdvReac Type Severity Reaction Status Date / Time alprazolam Allergy Intermediate Swelling Verified 05/14/23 13:35 bacitracin Allergy Intermediate blisters Verified 05/14/23 13:35 bupropion Allergy Intermediate Rash Verified 05/14/23 13:35 neomycin Allergy Intermediate blisters Verified 05/14/23 13:35 polymyxin B Allergy Intermediate blisters Verified 05/14/23 13:35 latex Allergy Unknown blisters Verified 05/14/23 13:35 BUPROPION HCL Allergy Intermediate SWELLING Uncoded 05/14/23 13:35 Review of Systems Review of Systems: CONSTITUTIONAL: Denies body aches, fever, chills, or sweats. EYES: Denies visual changes, redness, or discharge. ENT: Denies rhinorrhea, congestion CARDIOVASCULAR: Denies chest pain, palpitations, or edema. RESPIRATORY: Denies cough or dyspnea. GASTROINTESTINAL: Denies abdominal pain, nausea, vomiting, or diarrhea. SKIN: reports rash to back MUSCULOSKELETAL: Denies back pain, joint pain, or myalgia. NEUROLOGIC: Denies headache, numbness, tingling, or weakness. [facility] Past Medical History Medical History Coronary artery disease Dyslipidemia Essential (primary) hypertension Tobacco abuse Family History Family History Mother Family history of Alzheimer's disease Patient's mother is Sibling Family history of diabetes mellitus in first degree relative Patient's brother is Father Patient's father is Family history of Alzheimer's disease Social History Social History Smoking packs per day: 0.5 Smoking cigarettes per day: 10.0 Years smoked: 50 Smoking pack-years: 25.00 Smoking status: Current every day smoker Tobacco type: cigarettes Second hand tobacco smoke exposure: No Alcohol intake: former Substance use: never Substance use type: marijuana Other substance usage details: used to be a heavy drinker, no drinks in 7-8 years Last use: 1 month ago Do You Feel Safe in your Home?: Yes Lack of Transportation: No Lack of Food: Never True Current Housing: I Have Housing Concerned About Future Housing: No Difficulty Paying Gas/Electric Bills: No Difficulty Paying for Meds: No Currently Unemployed: No Education: Trade/Vocational Certificate Difficulty w/ Childcare or Family Care: No Spiritual care concerns: No Comments At time of signature, I have reviewed and agree with nursing past medical, surgical, social and family history unless otherwise noted. Please see
== END 2023-05-14 14:05 | disposition home or self-care (01) ==
PROVIDERS: Emergency Provider Nurse Practitioner Family; PCP Internal Medicine
DX: L25.9 Unspecified contact dermatitis, unspecified cause (principal); I25.10 Atherosclerotic heart disease of native coronary artery without angina pectoris; E78.5 Hyperlipidemia, unspecified; I10 Essential (primary) hypertension; F17.210 Nicotine dependence, cigarettes, uncomplicated; Z79.82 Long term (current) use of aspirin; Z79.899 Other long term (current) drug therapy
CPT/HCPCS: 99213; G0463

== ENCOUNTER 2023-08-14 07:30 | Outpatient (CLI) | payer MEDICARE, SELFPAY ==
[2023-08-14 08:03] LABS: Basophils Percent Auto 0.7 % (0.2-1.2); Eosinophils Absolute Auto 0.1 K/mm3 (0-0.3); Eosinophils Percent Auto 2.4 % (0-4.4); Hematocrit 44.4 % (42.0-52.0); Hemoglobin 14.9 g/dL (14.0-18.0); Immature Granulocyte Absolute 0.02 K/mm3 (0.00-0.031); Immature Granulocyte Percent A 0.3 % (0-0.5); Lymphocytes Absolute Auto 1.83 K/mm3 (0.9-3.2); Lymphocytes Percent Auto 31.2 % (18.3-44.2); Mean Corpuscular HGB Conc 33.6 g/dl (32-36); Mean Corpuscular Hemoglobin 32.6 pg (26-34); Mean Corpuscular Volume 97.2 fl (80-100); Mean Platelet Volume 9.6 fl (7.4-10.4); Monocytes Absolute Auto 0.6 K/mm3 (0.1-0.6); Monocytes Percent Auto 9.5 % (2.6-8.5); Neutrophils Absolute Auto 3.3 K/mm3 (1.3-6.7); Neutrophils Percent Auto 55.9 % (45.5-73.1); Platelet Count Result 196 k/mm3 (150-375); Red Blood Count 4.57 M/mm3 (4.6-6.20); Red Cell Distribution Width 13.4 % (11.5-14.5); White Blood Count 5.9 K/mm3 (4.5-10.0)
[2023-08-14 08:27] LABS: Alanine Aminotransferase 14 U/L (6-50); Albumin Level 4.2 g/dL (3.5-5.1); Alkaline Phosphatase 58 U/L (38-126); Anion Gap 9 mmol/L (4-12); Aspartate Amino Transferase 18 U/L (17-59); Bilirubin,Total 0.5 mg/dL (0.2-1.3); Blood Urea Nitrogen 18 mg/dL (9-20); Calcium 9.6 mg/dL (8.4-10.2); Carbon Dioxide 25 mmol/L (22-30); Chloride 106 mmol/L (98-107); Cholesterol 236 mg/dL (0-200); Estimated Glomerular Filt Rate > 60; Glucose 123 mg/dL (65-110); HDL Direct 37 mg/dL; Potassium 4.3 mmol/L (3.4-5.0); Sodium 140 mmol/L (137-145); Triglycerides 142 mg/dL (<150)
[2023-08-14 08:39] LABS: LDL Cholesterol Direct 164 mg/dL
[2023-08-14 09:28] LABS: Hemoglobin A1C 5.7 % (<5.7)
[2023-08-14 09:33] LABS: Folic Acid 4.2 ng/mL (2.76->20)
== END 2023-08-14 07:31 | disposition home or self-care (01) ==
PROVIDERS: PCP Internal Medicine; Referring Provider Internal Medicine Cardiovascular Disease; Visit Provider Physician Assistant
DX: E78.5 Hyperlipidemia, unspecified (principal); I25.10 Atherosclerotic heart disease of native coronary artery without angina pectoris; Z12.5 Encounter for screening for malignant neoplasm of prostate; R53.83 Other fatigue; R73.9 Hyperglycemia, unspecified
CPT/HCPCS: 36415; 80053; 80061; 82607; 82746; 83036; 84153; 84443; 85025; G0103

== ENCOUNTER 2023-10-04 14:26 | Outpatient (CLI) | payer MEDICARE, SELFPAY ==
--- NOTE | ~2023-10-04 | MR_ITS ---
EXAMINATION: MR lower leg LT wo con DATE: 10/04/2023 15:38 INDICATION: Left lower leg pain TECHNIQUE: Magnetic resonance imaging (MRI) of the left lower leg was performed without intravenous c ontrast. Sequences included axial, sagittal and coronal T1-weighted FSE and fluid sensitive FSE STIR . The contralateral right lower leg is included on the coronal images. COMPARISON: None. FINDINGS: Bone marrow signal is normal throughout with no reactive edema, fracture or pathologic marrow replaci ng process. Relatively symmetric scattered small regions of fatty atrophy in the bilateral soleus and gastrocnemius muscles. There is a very thin fluid collection along the soleal side of the aponeurosi s between the soleus muscle and the medial head of the gastrocnemius muscle consistent with moderate grade calf strain/partial tear. This measures 9 cm craniocaudally and measures up to 1.3 cm in transa xial with . No discrete tear of the aponeurosis is appreciated. Neurovascular structures are unremark able. No abnormal masses or fluid collections identified. IMPRESSION: 1. Moderate grade calf strain/partial tear along the myotendinous junction of the soleus and the sole al aponeurosis deep to the medial head of the gastrocnemius muscle. Reviewed, dictated and finalized at location A. IMPRESSION: 1. Moderate grade calf strain/partial tear along the myotendinous junction of t he soleus and the soleal aponeurosis deep to the medial head of the gastrocnemi us muscle.
== END 2023-10-04 14:27 | disposition home or self-care (01) ==
PROVIDERS: PCP Internal Medicine; Visit Provider Internal Medicine
DX: S86.812A Strain of other muscle(s) and tendon(s) at lower leg level, left leg, initial encounter (principal); X58.XXXA Exposure to other specified factors, initial encounter
CPT/HCPCS: 73718

== ENCOUNTER 2023-12-26 08:46 | Outpatient (CLI) | payer MEDICARE, SELFPAY ==
[2023-12-26 09:57] LABS: Alanine Aminotransferase 46 U/L (6-50); Albumin Level 4.5 g/dL (3.5-5.1); Alkaline Phosphatase 62 U/L (38-126); Anion Gap 9 mmol/L (4-12); Aspartate Amino Transferase 38 U/L (17-59); Bilirubin,Total 0.9 mg/dL (0.2-1.3); Blood Urea Nitrogen 14 mg/dL (9-20); Calcium 9.7 mg/dL (8.4-10.2); Carbon Dioxide 28 mmol/L (22-30); Chloride 102 mmol/L (98-107); Cholesterol 99 mg/dL (0-200); Estimated Glomerular Filt Rate > 60; Glucose 124 mg/dL (65-110); HDL Direct 53 mg/dL; Potassium 3.9 mmol/L (3.4-5.0); Sodium 139 mmol/L (137-145); Triglycerides 88 mg/dL (<150)
[2023-12-26 10:09] LABS: LDL Cholesterol Direct < 30 mg/dL
== END 2023-12-26 08:47 | disposition home or self-care (01) ==
LOC: ANHLAB 08:47
PROVIDERS: PCP Internal Medicine; Visit Provider Internal Medicine Cardiovascular Disease
DX: E78.5 Hyperlipidemia, unspecified (principal)
CPT/HCPCS: 36415; 80053; 80061

== ENCOUNTER 2024-06-22 11:32 | Outpatient (CLI) | payer MEDICARE, SELFPAY ==
--- NOTE | ~2024-06-22 | CT_ITS ---
CT Scan of the Chest without Contrast: Clinical Indication: Lung cancer should, nicotine dependence Technique: Contiguous sections were acquired throughout the chest without intravenous contrast. Dose reduction technique was used on this scan by utilizing automated exposure control and iterative recon struction technique. The dose-length product (DLP) was 127.78 mGy-cm. Findings: There is no evidence of any significant mediastinal, hilar or axillary lymphadenopathy. Extensive cor onary artery calcifications are present. There is no evidence of pleural or pericardial effusion. The lungs are clear. No pulmonary nodules or infiltrates are noted. Images through the upper abdomen reveal no abnormalities. Impression: Lung RADS 1: Negative. 12 month follow-up screening CT advised. Reviewed, dictated and finalized at location . Impression: Lung RADS 1: Negative. 12 month follow-up screening CT advised.
--- OUTSIDE RECORDS SUMMARY | 2024-06-22 13:22 | XMS_ITS | Referral Summary ---
Author Organization [facility] [address] Address [address] [place] [address] Care Team Providers Care Motor Coach Supervisor Name Role Phone Juan Carlos Jimenez MD Primary Care Provider +1- [phone] Allergies Active Allergy Reactions Criticality Noted Date Comments Bacitracin Benzalkonium Bupropion Gramicidin D Neomycin Polymyxin B Medications aspirin 81 mg tablet take 1 tablet (81MG) by oral route every day 0 1 Active azelastine (ASTELIN) 137 mcg (0.1 %) nasal spray spray 2 spray by intranasal route 2 times every day in each nostril 0 2 Active fluticasone (FLONASE) 50 mcg/actuation nasal spray Administer 1 spray into each nostril daily. Active sildenafil, antihypertensive, (REVATIO) 20 mg tabletIndications :Pulmonary Arterial Hypertension,2-4 tabs as needed Take 20 mg by mouth as needed. Active clopidogrel (PLAVIX) 75 mg tablet Take 1 tablet (75 mg total) by mouth daily. 90 tablet 3 8 Active losartan (COZAAR) 50 mg tablet Take 1 tablet (50 mg total) by mouth daily. 90 tablet 3 8 Active metoprolol (LOPRESSOR) 25 mg tablet Take 1 tablet (25 mg total) by mouth 2 (two) times a day. 180 tablet 3 8 Active nitroglycerin (NITROSTAT) 0.[address] 1 tablet (0.4 mg total) under the tongue every 5 (five) minutes as needed for chest pain. 25 tablet 3 8 Active vitamin K2 40 mcg tablet Take by mouth Active varenicline (CHANTIX) 1 mg tabletIndications :Smoking Cessation Take 1 tablet (1 mg total) by mouth 2 (two) times a day Take with full glass of water. 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 Gender Identity Not on file Sexual Orientation Not on file Last Filed Vital Signs Vital Sign Reading Time Taken Comments Blood Pressure 114/72 08/19/2019 8:42 AM CDT Pulse 76 08/19/2019 8:42 AM CDT Temperature - - Respiratory Rate - - Oxygen Saturation 97% 08/19/2019 8:42 AM CDT Inhaled Oxygen Concentration - - Weight 81.6 kg (180 lb) 08/19/2019 8:42 AM CDT Height 175.3 cm (5' 9 ) 08/19/2019 8:42 AM CDT Body Mass Index 26.58 08/19/2019 8:42 AM CDT Plan of Treatment Not on file Insurance [facility] MEDICARE ADVANTAGE Care Teams Motor Coach Supervisor Relationship Specialty Start Date End Date Juan Carlos Jimenez MD [address] [facility] [address] [place], [place] [id number] PCP - General 09/05/12
--- OUTSIDE RECORDS SUMMARY | 2024-06-22 13:22 | XMS_ITS | Clinical Summary ---
Author Organization [facility] Address [address] [place] [address] Care Team Providers Care Occupational Physician Name Role Phone Unavailable Primary Care Provider Unavailabl e Social History Tobacco Use Types Packs/Day Years Used Date Smoking Tobacco: Never Assessed Sex and Gender Information Value Date Recorded Sex Assigned at Not on file Legal Sex Male 8:10 PM CDT Gender Identity Not on file Sexual Orientation Not on file Plan of Treatment Health Maintenance Due Date Last Done Comments Hepatitis C 1963 DTaP, Tdap and Td Vaccines ( 1 - Tdap) 1965 Pneumococcal Vaccine: 50+ Ye ars (1 of 1 - PCV) 1996 Zoster Vaccines (1 of 2) 1996 RSV Immunization or 60+ Years (1 - 1-dose 75+ series) 2021 COVID-19 Vaccine ( - 2023-2 5 season) 2023 Meningococcal B Vaccine Aged Out No l onger eligible based on patient's age to complete this topic Meningococcal Vaccine Aged Out No rui viral eligible based on patient's age to complete this topic RSV Immunizations Under 20 Months Aged Out No longer eligible based on patient's age to complete this topic
--- OUTSIDE RECORDS SUMMARY | 2024-06-22 13:22 | XMS_ITS | Clinical Summary ---
Author Organization [facility] [address] Address [address] [place] [address] Care Team Providers Care Bench Boring Machine Operator Name Role Phone Juan Carlos Jimenez MD Primary Care Provider +1- [phone] Allergies Active Allergy Reactions Criticality Noted Date [...] Active Active Problems No known active problems Surgical History Surgery Date Site/Laterality Comments OTHER SURGICAL HISTORY CAD/ACS, Stent SHELBY LAD: OTHER SURGICAL HISTORY Thyroidectomy - Partial OTHER SURGICAL HISTORY Repair L. thumb & R. fingers (work trauma) OTHER SURGICAL HISTORY Lipoma removal; Cysts removal - benign HERNIA REPAIR Hernia Repair OTHER SURGICAL HISTORY partial thyroidectomy benign thyroid nodule Medical History Medical History Date Comments Hx Other Medical 2006 CAD/ACS, Stent SHELBY LAD Sinusitis Sinusitis Hx Other Medical Dentures Hx Other Medical 2007 Chemical Depend ency - Recovered Hx Other Medical dyslipidemia Family History Medical History Relation Name Comments Diabetes type II Brother 2 Diabetes Ty pe II; Cause of : Diabetes Type II Dementia Father Dementia; Cause of : Dementia Dementia Mother Dementia; Cause of : Dementia Relation Name Status Comments Brother 1 (Age 54) Brother 2 Father Mother Social History Tobacco Use Types Packs/Day Years Used Date Smoking Tobacco: Some Days Smokeless Tobacco: Never Alcohol Use Standard Drinks/Week Comments No 0 (1 standard drink = 0.6 oz pur e alcohol) Sex and Gender Information Value Date Recorded Sex Assigned at Not on file 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
== END 2024-06-22 11:33 | disposition home or self-care (01) ==
PROVIDERS: PCP Internal Medicine; Visit Provider Nurse Practitioner
DX: Z12.2 Encounter for screening for malignant neoplasm of respiratory organs (principal); F17.210 Nicotine dependence, cigarettes, uncomplicated
CPT/HCPCS: 71271

== ENCOUNTER 2024-07-18 08:27 | Outpatient (CLI) | payer MEDICARE, SELFPAY ==
--- NOTE | ~2024-07-18 | CT_ITS ---
CT sinus wo con Ordering provider: Allie Costa MD History: . J32.9 - Chronic sinusitis, unspecified . Comparison: None. Technique: Thin slice Scans CT of the paranasal sinuses was performed with coronal and sagittal refor matted images. No IV contrast. . Automated exposure control and iterative reconstruction technique w ere employed. The dose-length product was 295.93 mGy-cm. Findings: NASAL SEPTUM: midline. OSTEOMEATAL UNITS: Bilaterally patent. NASAL TURBINATES AND NASOPHARYNX: Postoperative changes. Otherwise normal. PARANASAL SINUSES: Postoperative changes in the medial wall bilaterally in the maxillary sinuses. Oumar ateral maxillary sinusitis. Thickened wall of the maxillary sinuses seen suggestive of chronic sinusi tis. VISUALIZED MASTOIDS: Normal as visualized. BONES: Normal. SUPERFICIAL SOFT TISSUES/VISUALIZED BRAIN PARENCHYMA: Normal. IMPRESSION: Bilateral chronic maxillary sinusitis with postoperative changes. Reviewed, dictated and finalized at location A.
--- OUTSIDE RECORDS SUMMARY | 2024-07-18 08:31 | XMS_ITS | Referral Summary ---
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
--- OUTSIDE RECORDS SUMMARY | 2024-07-18 08:31 | XMS_ITS | Clinical Summary ---
Author Organization [facility] Address [address] [place] [address] Care Team Providers Care Molder Setter Name Role Phone Unavailable Primary Care Provider Unavailabl e Source Comments [facility],non-owned Affiliates and Associated Physician Practices is amultiple site organization consisting of ambulatory clinics and hospital sitesin [place], [place], [place] and [place]. This disclosure is being madepursuant to the Care Everywhere program and may not contain all information available regarding this patient. Last updated 17.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 Gender Identity Not on file Sexual Orientation Not on file Plan of Treatment Health Maintenance Due Date Last Done Comments HEPATITIS C SCREENING 07/12/1963 DTAP/TDAP/TD VACCINES (1 - Tdap) 1965 PNEUMOCOCCAL VACCINE 50+ (1 of 1 - PCV) 1996 ZOSTER VACCINE (1 of 2) 1996 Respiratory Syncytial Virus (RSV) Vaccine Pt: or over 60 yrs (1 - 1-dose 75+ series) 2021 COVID-19 VACCINE ( - 2023-2 5 season) 2023 DEPRESSION SCREENING 03/04/2024 MEDICARE AWV CALENDAR YEAR 2024 INFLUENZA VACCINE (Season Ended) 2024 HEPATITIS B VACCINE Aged Out No longe r eligible based on patient's age to complete this topic HIB VACCINE Aged Out No longer eligi ble based on patient's age to complete this topic HPV VACCINE Aged Out No longer eligi ble based on patient's age to complete this topic MENINGOCOCCAL (Group B) VACC INE SHARED DECISION-MAKING Aged Out No longer eligibl e based on patient's age to complete this topic MENINGOCOCCAL GROUPS A/C/Y/W VACCINE Aged Out No longer eligible b ased on patient's age to complete this topic Procedures Procedure Name Priority Date/Time Associated Diagnosis Comments DERMATOPATHOLOGY Routine 06/26/2024 12:0 0 AM CDT Neoplasm of uncertain behavior of skin from Last 3 Months Results * DERMATOPATHOLOGY (06/26/2024 12:00 AM CDT) Case Report Dermatopathology Report Case: [id number] Authorizing Provider: Jerrod Balderrama MD Collected: 06/26/2024 12:00 AM Ordering Location: [facility] - Received: 06/29/2024 04:39 PM DermPath Lab Pathologist: Unique Monroy MD Specimen: Skin, left distal forearm 5:21 PM CDT DERMATOPATHOLOGY LABORATORY Final Diagnosis Specimen A. 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 The specimen consists of a shave biopsy measuring 21k25c1 mm. Jar 0. 5:21 PM CDT DERMATOPATHOLOGY LABORATORY Microscopic Description Specimen A. SKIN, left distal forearm: Arising in the epidermis and extending into the dermis there are irregularly shaped aggregates of keratinocytes showing evidence of premature cornification. 5:21 PM CDT DERMATOPATHOLOGY LABORATORY Disclaimer An external and internal positive and negative controls are appropriate for the histochemical, immunohistochemical and immunofluorescence stain(s) in this case (if any), except where stated explicitly. The performance characteristics of the stain(s) cited in this report were developed and its performance characteristic determined by the Dermatopathology Laboratory at [facility], directed by Dr. Jd Adler. These tests need not be, and therefore are not, approved by the [place] Food and Drug Administration. The tests are used for clinical purposes. Billing Codes Specimen Charges Stain Charges 70246 1 5:21 PM CDT DERMATOPATHOLOGY LABORATORY Embedded Images 5:21 PM CDT DERMATOPATHOLOGY LABORATORY Pathology/Cytolog y TISSUE SPECIMEN FROM SKIN / Unknown 06/26/2024 06/29/2024 4:39 PM CDT Jerrod Balderrama MD LAB - PATHOLOGY/CYTOLOGY ISMAEL DRAKE Final Result DERMATOPATHOLOGY LABORATORY [facility] - Department of Dermatology [address] [phone] from Last 3 Months Insurance [facility] MANAGED MEDICARE ADV
--- OUTSIDE RECORDS SUMMARY | 2024-07-18 08:31 | XMS_ITS | Clinical Summary ---
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 MEDICARE ADVANTAGE Care Teams Naphtha Washing System Operator Relationship Specialty Start Date End Date Juan Carlos Jimenez MD [address] [facility] [address] [place] [address] PCP - General 09/05/12
--- OUTSIDE RECORDS SUMMARY | 2024-07-18 08:31 | XMS_ITS | Clinical Summary ---
Author Organization [facility] Address [address] [place] [address] Care Team Providers Care Investment Fund Manager Name Role Phone Unavailable Primary Care Provider [...]
--- OUTSIDE RECORDS SUMMARY | 2024-07-18 08:31 | XMS_ITS | Encounter Summary ---
Author Organization [facility] Address [address] [facility] [address] Care Team Providers Care Waste Collection Driver Name Role Phone Unavailable Primary Care Provider Unavailabl e Encounter Details Date Type Department Care Team (Late st Contact Info) Description 06/26/2024 Lab Requisition [facility] - DermPath Lab [address] [place] [phone] Jerrod Balderrama MD [facility] DERMATOLOGY [address] [place] [address] Neoplasm of uncertain behavior of skin Social History Tobacco Use Types Packs/Day Years Used Date Smoking Tobacco: Never Assessed Sex and Gender Information Value Date Recorded Sex Assigned at Not on file 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 Gender Identity Not on file Sexual Orientation Not on file documented as of this encounter Plan of Treatment Not on file documented as of this encounter Procedures Procedure Name Priority Date/Time Associated Diagnosis Comments DERMATOPATHOLOGY Routine 06/26/2024 12:0 0 AM CDT Neoplasm of uncertain behavior of skin documented in this encounter Results * DERMATOPATHOLOGY (06/26/2024 12:00 AM CDT) Case Report Dermatopathology Report Case: [id number] Authorizing Provider: Jerrod Balderrama MD Collected: 06/26/2024 12:00 AM Ordering Location: [facility] Physician [facility] - Received: 06/29/2024 04:39 PM DermPath Lab [...] specimen consists of a shave biopsy measuring 99h22f2 mm. Jar 0. 5:21 PM CDT DERMATOPATHOLOGY [...] characteristic determined by the Dermatopathology Laboratory at [facility], directed by Dr. Jd Adler. These tests need not be, and therefore are not, approved by the [place] Food and Drug Administration. The tests are used for clinical purposes. Billing Codes Specimen Charges Stain Charges 56253 1 5:21 PM CDT DERMATOPATHOLOGY LABORATORY Embedded Images 5:21 PM CDT DERMATOPATHOLOGY LABORATORY Pathology/Cytolog y TISSUE SPECIMEN FROM SKIN / Unknown 06/26/2024 06/29/2024 4:39 PM CDT Jerrod Balderrama MD LAB - PATHOLOGY/CYTOLOGY ISMAEL DRAKE Final Result DERMATOPATHOLOGY LABORATORY [facility] - Department of Dermatology [address] [phone] documented in this encounter Visit Diagnoses Diagnosis Neoplasm of uncertain behavior of skin documented in this encounter
== END 2024-07-18 08:28 | disposition home or self-care (01) ==
PROVIDERS: PCP Nurse Practitioner; Visit Provider Otolaryngology Otolaryngology/Facial Plastic Surgery
DX: J32.0 Chronic maxillary sinusitis (principal)
CPT/HCPCS: 70486

== ENCOUNTER 2024-08-13 08:05 | Outpatient (CLI) | payer MEDICARE, SELFPAY ==
--- OUTSIDE RECORDS SUMMARY | 2024-08-13 08:10 | XMS_ITS | Referral Summary ---
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
--- OUTSIDE RECORDS SUMMARY | 2024-08-13 08:10 | XMS_ITS | Clinical Summary ---
Author Organization [facility] Address [address] [facility] [place] [address] Care Team Providers Care Railway Track Worker Name Role Phone Unavailable Primary Care Provider Unavailabl e Source Comments [facility],non-owned Affiliates and Associated Physician Practices is amultiple site organization consisting of ambulatory clinics and hospital sitesin [place], [place], [place] and [place]. This disclosure is being madepursuant to the Care Everywhere program and may not contain all information available regarding this patient. 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 Jar 0. 5:21 PM CDT DERMATOPATHOLOGY [...] characteristic determined by the Dermatopathology Laboratory at [facility], directed by Dr. Jd Adler. These tests need not be, and therefore are not, approved by the [place] Food and Drug Administration. The tests are used for clinical purposes. Billing Codes Specimen Charges Stain Charges 26680 1 5:21 PM CDT DERMATOPATHOLOGY LABORATORY Embedded Images 5:21 PM CDT DERMATOPATHOLOGY LABORATORY Pathology/Cytolog y TISSUE SPECIMEN FROM SKIN / Unknown 06/26/2024 06/29/2024 4:39 PM CDT Jerrod Balderrama MD LAB - PATHOLOGY/CYTOLOGY ISMAEL DRAKE Final Result DERMATOPATHOLOGY LABORATORY [facility] - Department of Dermatology [address] [phone] from Last 3 Months Insurance [facility] [place] [address]
--- OUTSIDE RECORDS SUMMARY | 2024-08-13 08:10 | XMS_ITS | Clinical Summary ---
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
--- OUTSIDE RECORDS SUMMARY | 2024-08-13 08:10 | XMS_ITS | Encounter Summary ---
Author Organization [facility] Address [address] [place] [address] Care Team Providers Care Residential Worker Name Role Phone Unavailable Primary Care Provider Unavailabl e Encounter Details Date Type Department Care Team (Late st Contact Info) Description 06/26/2024 Lab Requisition [facility] - DermPath Lab [address] [place] [id number] Jerrod Balderrama MD [facility] DERMATOLOGY [address] [place] [phone] Neoplasm of uncertain behavior of skin Social History Tobacco Use Types Packs/Day Years Used Date Smoking Tobacco: Never Assessed Sex and Gender Information Value Date Recorded Sex Assigned at Not on file Legal Sex Male 6:[address] Gender Identity Not on file Sexual Orientation Not on file documented as of this encounter Plan of Treatment Not on file documented as of this encounter Procedures Procedure Name Priority Date/Time Associated Diagnosis Comments DERMATOPATHOLOGY Routine 06/26/2024 12:0 0 AM CDT Neoplasm of uncertain behavior of skin documented in this encounter Results * DERMATOPATHOLOGY (06/26/2024 12:00 AM CDT) Case Report Dermatopathology Report Case: [id number] Authorizing Provider: Jerrod Baldrerama MD Collected: 06/26/2024 12:00 AM Ordering Location: [facility] Physician [facility] - Received: 06/29/2024 04:39 PM DermPath Lab [...] specimen consists of a shave biopsy measuring [id number] mm. Jar 0. 5:21 PM CDT DERMATOPATHOLOGY [...] characteristic determined by the Dermatopathology Laboratory at [facility], directed by Dr. Jd Adler. These tests need not be, and therefore are not, approved by the [place] Food and Drug Administration. The tests are used for clinical purposes. Billing Codes Specimen Charges Stain Charges 86245 1 5:21 PM CDT DERMATOPATHOLOGY LABORATORY Embedded Images 5:21 PM CDT DERMATOPATHOLOGY LABORATORY Pathology/Cytolog y TISSUE SPECIMEN FROM SKIN / Unknown 06/26/2024 06/29/2024 4:39 PM CDT Jerrod Balderrama MD LAB - PATHOLOGY/CYTOLOGY ISMAEL DRAKE Final Result DERMATOPATHOLOGY LABORATORY [facility] - Department of Dermatology [address], [address] [phone] documented in this encounter Visit Diagnoses Diagnosis Neoplasm of uncertain behavior of skin documented in this encounter
[2024-08-13 08:33] LABS: Alanine Aminotransferase 21 U/L (6-50); Albumin Level 4.1 g/dL (3.5-5.1); Alkaline Phosphatase 56 U/L (38-126); Anion Gap 7 mmol/L (4-12); Aspartate Amino Transferase 23 U/L (17-59); Bilirubin,Total 0.3 mg/dL (0.2-1.3); Blood Urea Nitrogen 12 mg/dL (9-20); Calcium 9.5 mg/dL (8.4-10.2); Carbon Dioxide 27 mmol/L (22-30); Chloride 105 mmol/L (98-107); Cholesterol 113 mg/dL (0-200); Estimated Glomerular Filt Rate > 60; Glucose 117 mg/dL (65-110); HDL Direct 43 mg/dL; Potassium 3.9 mmol/L (3.4-5.0); Sodium 139 mmol/L (137-145); Total Protein 6.9 g/dL (6.3-8.2); Triglycerides 104 mg/dL (<150)
[2024-08-13 08:43] LABS: LDL Cholesterol Direct 46 mg/dL
== END 2024-08-13 08:06 | disposition home or self-care (01) ==
PROVIDERS: PCP Nurse Practitioner; Visit Provider Internal Medicine
DX: R73.9 Hyperglycemia, unspecified (principal); I10 Essential (primary) hypertension; E78.5 Hyperlipidemia, unspecified
CPT/HCPCS: 36415; 80053; 80061; 83036

== ENCOUNTER 2024-08-13 08:46 | Emergency (ER) | payer MEDICARE, SELFPAY ==
--- NOTE | 2024-08-13 08:54 | ED.EYEPROB ---
HPI - Eye Problem General Chief complaint: Eye Problems Stated complaint: Right Eye Irritation Time Seen by Provider: 08/13/24 08:55 Source: patient, RN notes reviewed and old records reviewed Mode of arrival: ambulatory Limitations: no limitations History of Present Illness HPI Narrative: 79-year-old male presents to the [facility] with complaints of right upper lid swelling, itching and tearing. States that he was mowing the grass yesterday. Denies any eye pain. Denies any blurry vision or change in vision. Does wear glasses, does not wear contacts. Onset (ago): day(s) (1) Treatments Prior to Arrival: none Related Data Home Medications ?Medication ?Instructions ?Recorded ?Confirmed ?Last Taken ?Type aspirin 81 mg tablet,delayed 81 mg PO QPM 01/17/19 07/06/24 09/25/20 History release (Adult Low Dose Aspirin) hydrocortisone 1 % topical cream 1 applic topical BID PRN eczema 01/17/19 07/06/24 Unknown History (Cortisone (hydrocortisone)) ezetimibe 10 mg tablet mg 08/13/24 Unknown History Allergies Allergy/AdvReac Type Severity Reaction Status Date / Time alprazolam Allergy Intermediate Swelling Verified 08/13/24 09:31 bacitracin Allergy Intermediate blisters Verified 08/13/24 09:31 bupropion Allergy Intermediate Rash Verified 08/13/24 09:31 neomycin Allergy Intermediate blisters Verified 08/13/24 09:31 polymyxin B Allergy Intermediate blisters Verified 08/13/24 09:31 aloe vera (From [place] Allergy Unknown Unknown Verified 08/13/24 09:31 Triple Action) dimethicone (From [place] Allergy Unknown Unknown Verified 08/13/24 09:31 Triple Action) latex Allergy Unknown blisters Verified 08/13/24 09:31 menthol (From [place] Allergy Unknown Unknown Verified 08/13/24 09:31 Triple Action) vitamin E (d-alpha Allergy Unknown Unknown Verified 08/13/24 09:31 tocopherol) (From [place] Triple Action) benzalkonium Allergy unknown Verified 08/13/24 09:31 Gramicidins Allergy Unknown Verified 08/13/24 09:31 BUPROPION HCL Allergy Intermediate SWELLING Uncoded 08/13/24 09:31 antibiotic Ointment Allergy Unknown Unknown Uncoded 08/13/24 09:31 Review of Systems Review of Systems: All systems reviewed & are unremarkable except as noted in HPI and below Constitutional: Constitutional: Reports no additional constitutional complaints Eyes: Eyes: Reports as per HPI ENT: Reports system reviewed and no additional complaints, except as documented Cardiovascular: Cardiovascular: Reports no additional cardiovascular complaints, Denies chest pain and Denies dyspnea Respiratory: Respiratory: Reports no additional respiratory complaints, Denies chest congestion, Denies cough and Denies dyspnea Musculoskeletal: Musculoskeletal: Reports no additional musculoskeletal complaints Integumentary/Breasts: Skin/Breast: Reports system reviewed and no additional complaints, except as docu PMFSH Past Medical History Medical History Nasal congestion Chronic sinusitis Allergic rhinitis with postnasal drip GERD (gastroesophageal reflux disease) Tobacco abuse Dyslipidemia Coronary artery disease Essential (primary) hypertension Family History Family History Mother Family history of Alzheimer's disease Patient's mother is Sibling Family history of diabetes mellitus in first degree relative Patient's brother is Father Patient's father is Family history of Alzheimer's disease Social History Social History Social History: Caffeine-coffee Smoking packs per day: 0.5 Smoking cigarettes per day: 10.0 Years smoked: 50 Smoking pack-years: 25.00 Smoking status: Current every day smoker Tobacco type: cigarettes Second hand tobacco smoke exposure: No Alcohol intake: former Substance use: current Substance use type: marijuana Other substance usage details: used to be a heavy drinker, no drinks in 7-8 years Last use: 1 month ago Do You Feel Safe in your Home?: Yes Lack of Transportation: No Lack of Food: Never True Current Housing: I Have Housing Concerned About Future Housing: No Difficulty Paying Gas/Electric Bills: No Difficulty Paying for Meds: No Currently Unemployed: No Education: Trade/Vocational Certificate Difficulty w/ Childcare or Family Care: No Spiritual care concerns: No Comments At the time of my signature, I reviewed and agree with the nursing past medical, surgical, social, and family history. There is no relevant family history pertinent to the patient complaint. Exam Const: General: cooperative, healthy appearing, comfortable, no acute distress, well developed, alert and well nourished Nutritional Appearance: well nourished Orientation/consciousness: patient oriented x3 Limitations: no limitations HENMT: Head: normal to inspection Ears: hearing grossly normal bilaterally, external ears normal, TM's normal bilaterally, EAC's normal, mastoids normal and no periauricular adenopathy Mouth: Yes Normal oral and palatal mucosa present, Yes lip normal, Yes tongue normal and Yes moist mucous membranes Throat: posterior oropharynx normal, uvula midline and no uvular edema Eyes: General: appearance normal, both eyes and all related structures Visual Nichols: normal visual nichols by confrontation Alignment and Position: alignment normal Eyelids: eyelid abnormality right upper eyelid swelling; without inflamed cyst, without erythema, no crusting or scaling of lid margins and nontender Conjunctivae: conjunctivae normal Sclera: sclerae normal Pupils: Equal, round and reactive pupils present EOM: EOMs intact bilaterally Neck: Neck: normal visual inspection, full ROM, no lymphadenopathy and no meningeal signs Chest: Chest palpation & inspection: normal inspection of the chest Resp: Effort & Inspection: normal respiratory effort and able to speak in complete sentences Auscultation: clear to auscultation bilaterally, no crackles, no rales, no rhonchi and no wheezes Cardio: Rate: regular rate Skin: General skin exam: normal color and no rashes or lesions noted Neuro: General: patient oriented x3, gait normal, moves all extremities and no meningeal signs Cognition (Neuro): normal cognition Speech: normal speech Gait exam (Neuro): Normal gait present Extrem: General: normal to inspection, full ROM, capillary refill normal and normal gait Psych: Appearance: grossly normal and well kempt Mental Status: mental status grossly normal Speech and movement: Normal speech and movement present and Clear speech present Affect: normal affect Attitude: cooperative Course Course Level of Care: Express Care Visit Vital Signs Vital signs: Vital Signs Temperature 97.5 F L 08/13/24 08:57 Pulse Rate 63 08/13/24 08:57 Respiratory Rate 16 08/13/24 08:57 Blood Pressure 126/62 08/13/24 08:57 Pulse Oximetry 98 08/13/24 08:57 Oxygen Delivery Room Air 08/13/24 08:57 Temperature 97.5 F L 08/13/24 08:57 Pulse Rate 63 08/13/24 08:57 Respiratory Rate 16 08/13/24 08:57 Blood Pressure 126/62 08/13/24 08:57 Pulse Oximetry 98 08/13/24 08:57 Oxygen Delivery Room Air 08/13/24 08:57 Reviewed MDM - Eye Problem MDM Narrative Medical decision making narrative: 79-year-old male presents to the [facility] with right upper lid swelling since yesterday. Denies any blurry vision or change in vision. No cyst noted. No trauma noted. Discussed doing pmez-[id number]-[id number] treatments, will cover with antibiotic on likely cellulitis, discussed this with patient. Patient is appropriate for outpatient treatment with close follow-up Discharge instructions reviewed with patient, as well as provided in writing per nursing staff. The instructions also include specific and strict return/GO TO THE ER as well as f/u information. All questions have been answered, and the patient deny any further questions with discharge and discharge plan. Some parts of this dictation were generated by voice recognition software and may contain typographical and/or grammatical inaccuracies. Differential Diagnosis Differential diagnosis: Likely corneal abrasion, conjunctivitis, periorbital cellulitis and other Critical Care Time Critical Care Time Critical Care Time: No Discharge Plan Discharge Clinical Impression: Swelling of right upper eyelid Patient Disposition: Home Condition: Stable Instructions: Antibiotic Form, Eyelid Swelling (ED) Additional Instructions: The most important part of your care is follow up with Primary care provider. Take Benadryl 25- mg every 8 hours for itching Take Zyrtec every day Take Pepcid 20mg daily for 7 days Apply cool compresses every 2-3 hours for 15 minutes Go to the ER for new or worsening symptoms such as shortness of breath. You should follow-up with an eye doctor within the next 72 hours if symptoms are not improving [facility]: Re- [phone] [facility] [phone] [facility] [phone] [place]: [facility] [phone] or [phone] [facility] [phone] [facility] [phone] [facility] [phone] [facility] Ophthalmology- [phone] Patient Language: Eritrean Prescriptions: New amoxicillin-pot clavulanate 875-125 mg tablet 1 tablet PO Q12H Qty: 14 0RF No Action ezetimibe 10 mg tablet aspirin [Adult Low Dose Aspirin] 81 mg tablet,delayed release (DR/EC) 81 mg PO QPM hydrocortisone [Cortisone (hydrocortisone)] 1 % cream 1 applic TOPICAL BID PRN (Reason: eczema) omeprazole 40 mg capsule,delayed release(DR/EC) 40 mg PO DAILY 30 Days Qty: 30 2RF Rx Instructions: to be taken 30 minutes before breakfast azelastine 137 mcg (0.1 %) aerosol,spray 2 spray NASAL Q12H Qty: 30 5RF losartan 25 mg tablet See Rx Instructions .ROUTE .COMPLEX Qty: 90 2RF Dose Instruction: TAKE 1 TABLET BY MOUTH DAILY Rx Instructions: TAKE 1 TABLET BY MOUTH DAILY metoprolol succinate 25 mg tablet extended release 24 hr See Rx Instructions .ROUTE .COMPLEX Qty: 100 2RF Dose Instruction: TAKE 1 TABLET BY MOUTH EVERY MORNING Rx Instructions: TAKE 1 TABLET BY MOUTH EVERY MORNING sildenafil (pulm.hypertension) 20 mg tablet See Rx Instructions PO DAILY PRN (Reason: sexual activity) Qty: 60 1RF Rx Instructions: take 2-4 tabs by mouth as needed nitroglycerin 0.4 mg tablet, sublingual See Rx Instructions .ROUTE .COMPLEX Qty: 25 2RF Dose Instruction: DISSOLVE ONE TABLET UNDER THE TONGUE EVERY 5 MINUTES NEEDED FOR CHEST PAIN. DO NOT EXCEED A TOTAL OF 3 DOSES IN 15 MINUTES Rx Instructions: DISSOLVE ONE TABLET UNDER THE TONGUE EVERY 5 MINUTES NEEDED FOR CHEST PAIN. DO NOT EXCEED A TOTAL OF 3 DOSES IN 15 MINUTES rosuvastatin 40 mg tablet See Rx Instructions .ROUTE .COMPLEX Qty: 90 2RF Dose Instruction: Take 1 tablet by mouth once daily Rx Instructions: Take 1 tablet by mouth once daily Follow-up/Referrals: Edwardo Miller APRN [Primary Care Provider] - 1 Week ([facility] care follow up ) Time of Disposition: 09:14
[2024-08-13 08:57] VITALS: BP 126/62; PULSE 63; RESP 16; TEMP 36.4; O2SAT 98
== END 2024-08-13 09:22 | disposition home or self-care (01) ==
PROVIDERS: Emergency Provider Nurse Practitioner; PCP Nurse Practitioner
DX: H02.841 Edema of right upper eyelid (principal); F17.210 Nicotine dependence, cigarettes, uncomplicated; F12.90 Cannabis use, unspecified, uncomplicated; I25.10 Atherosclerotic heart disease of native coronary artery without angina pectoris; I10 Essential (primary) hypertension; E78.5 Hyperlipidemia, unspecified; K21.9 Gastro-esophageal reflux disease without esophagitis
CPT/HCPCS: 99213; G0463

== ENCOUNTER 2024-11-05 07:53 | Outpatient (CLI) | payer MEDICARE, SELFPAY ==
--- NOTE | ~2024-11-05 | NM_ITS ---
EXAMINATION: NM kyaw stress w perfusion DATE: 11/05/2024 10:02 INDICATION: Encounter for preprocedural cardiovascular examination TECHNIQUE: Rest images were obtained following intravenous administration of 10.3 mCi Tc99m tetrofosmin (Myoview). The patient was infused intravenously with Lexiscan (Regadenoson). Then, 33.3 mCi Tc99m tetrofosmin (Myoview) was administered intravenously, and stress images were obtained, initially in the prone position with repeat post stress images obtained in the prone position. Data was reconstructed into short axis and horizontal and vertical long axis SPECT images. Gated SPECT images were also obtained. COMPARISON: None. FINDINGS: There is a large severe largely nonreversible perfusion defect involving the apical, apical superior, apical inferior, apical septal, mid anteroseptal and mid inferoseptal segments. There is mild reversible ischemia at the apical lateral segment and partially reversible ischemia in the apical anterior segment. The suggestion of some additional ischemia at the mid inferolateral and mid inferior segments on the supine position images normalizes on the post stress imaging obtained in the prone position. There is normal left ventricular chamber size and ejection fraction. Left ventricular ejection fraction measures 62%. There appears to be mild paradoxical motion at the anterior apex however evaluation is limited by the very low level of activity at the apex. IMPRESSION: 1. 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 2. Left ventricular ejection fraction measuring 62%. Reviewed, dictated and finalized at location A. IMPRESSION: 1. 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 2. Left ventricular ejection fraction measuring 62%.
--- OUTSIDE RECORDS SUMMARY | 2024-11-05 08:00 | XMS_ITS | Clinical Summary ---
Author Organization [facility] Address [address] [place] [address] Care Team Providers Care Enterprise Account Manager Name Role Phone Unavailable Primary Care Provider Unavailabl e Source Comments [facility] Socialare,non-owned Affiliates and Associated Physician Practices is amultiple site organization consisting of ambulatory clinics and hospital sitesin [place], [place], [place] and [place]. This disclosure is being madepursuant to the Care Everywhere program and may not contain all information available regarding this patient. 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 Gender Identity Not on file Sexual Orientation Not on file Plan of Treatment Health Maintenance Due Date Last Done Comments HEPATITIS C SCREENING 07/12/1964 DTAP/TDAP/TD VACCINES (1 - Tdap) 1965 PNEUMOCOCCAL VACCINE 50+ (1 of 1 - PCV) 1996 ZOSTER VACCINE (1 of 2) 1996 Respiratory Syncytial Virus (RSV) Vaccine Pt: or over 60 yrs (1 - 1-dose 75+ series) 2021 DEPRESSION SCREENING 03/04/2024 MEDICARE AWV CALENDAR YEAR 2024 COVID-19 VACCINE (1 - 2023-2 5 season) 2024 INFLUENZA VACCINE (#1) 2024 HEPATITIS B VACCINE Aged Out No [...] on patient's age to complete this topic Insurance [facility] MANAGED MEDICARE ADV
--- OUTSIDE RECORDS SUMMARY | 2024-11-05 08:00 | XMS_ITS | Encounter Summary ---
Author Organization [facility] Address [address] [place] [address] Care Team Providers Care Fluoroscope Operator Name Role Phone Unavailable Primary Care Provider Unavailabl e Encounter Details Date Type Department Care Team (Late st Contact Info) Description 06/26/2024 Lab Requisition [facility] - DermPath Lab [address] [place] [phone] Jerrod Balderrama MD [facility] DERMATOLOGY [address] [place] [phone] Neoplasm of uncertain behavior of skin Social History Tobacco Use Types Packs/Day Years Used Date Smoking Tobacco: Never Assessed Sex and Gender Information Value Date Recorded Sex Assigned at Not on file 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 Gender Identity Not on file Sexual Orientation Not on file documented as of this encounter Plan of Treatment Not on file documented as of this encounter Procedures Procedure Name Priority Date/Time Associated Diagnosis Comments DERMATOPATHOLOGY Routine 06/26/2024 12:0 0 AM CDT Neoplasm of uncertain behavior of skin documented in this encounter Results * DERMATOPATHOLOGY (06/26/2024 12:00 AM CDT) Case Report Dermatopathology Report Case: [id number] Authorizing Provider: Jerrod Balderrama MD Collected: 06/26/2024 12:00 AM Ordering Location: [facility] Physician [facility] - Received: 06/29/2024 04:39 PM DermPath Lab [...] specimen consists of a shave biopsy measuring [id number] mm. Jar 0. 5:21 PM CDT DERMATOPATHOLOGY [...] purposes. Billing Codes Specimen Charges Stain Charges [id number] 1 5:21 PM CDT DERMATOPATHOLOGY LABORATORY Embedded Images 5:21 PM CDT DERMATOPATHOLOGY LABORATORY Pathology/Cytolog y TISSUE SPECIMEN FROM SKIN / Unknown 06/26/2024 06/29/2024 4:39 PM CDT Jerrod Balderrama MD LAB - PATHOLOGY/CYTOLOGY ISMAEL DRAKE Final Result DERMATOPATHOLOGY LABORATORY [facility] - Department of Dermatology [address] [phone] documented in this encounter Visit Diagnoses Diagnosis Neoplasm of uncertain behavior of skin documented in this encounter
--- OUTSIDE RECORDS SUMMARY | 2024-11-05 08:00 | XMS_ITS | Clinical Summary ---
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
--- NOTE | 2024-11-05 08:23 | EST_ITS ---
Patient Info Name: Des Lockwood Age: 79 years : 1945 Gender: Male Ht: 69 in Wt: 175 lbs BSA: 1.98 m2 HR: 49 bpm BP: 138 / 77 mmHg Exam Date: 11/05/2024 8:23 AM Patient Status: O Admit Date: 11/05/2024 Exam Type: CA stress kyaw w NM A regadenoson stress test was performed. Staff Referring Physician: Kobe Mack DO Attending Provider: Kobe Mack DO Exercise Technologist: Gloria Miller Exercise Physician: Kobe Mack DO Summary 1. 1. Negative lexiscan stress test for ischemic ST changes by ECG criteria. 2. 2. Stable hemodynamics throughout the test. 3. 3. Nuclear scan to follow and will be reported separately. Please correlate with it. 4. 4. Patient informed of the above results. Protocol: Lexiscan Stress ECG Details Stage: REST Duration (min): 0 min : 53 sec HR (bpm): 50 SBP (mmHg): 138 DBP (mmHg): 77 Stage: REST Duration (min): 10 min : 20 sec HR (bpm): 54 SBP (mmHg): 138 DBP (mmHg): 77 Stage: STAGE 1 Duration (min): 1 min : 0 sec HR (bpm): 62 SBP (mmHg): 149 DBP (mmHg): 82 Stage: RECOVERY Duration (min): 1 min : 0 sec HR (bpm): 80 SBP (mmHg): 149 DBP (mmHg): 82 Stage: RECOVERY Duration (min): 2 min : 0 sec HR (bpm): 82 SBP (mmHg): 149 DBP (mmHg): 82 Stage: RECOVERY Duration (min): 3 min : 0 sec HR (bpm): 76 SBP (mmHg): 152 DBP (mmHg): 87 Stage: RECOVERY Duration (min): 4 min : 0 sec HR (bpm): 75 SBP (mmHg): 152 DBP (mmHg): 87 Stage: RECOVERY Duration (min): 5 min : 0 sec HR (bpm): 74 SBP (mmHg): 152 DBP (mmHg): 86 Stage: RECOVERY Duration (min): 6 min : 0 sec HR (bpm): 68 SBP (mmHg): 152 DBP (mmHg): 86 Stage: RECOVERY Duration (min): 7 min : 0 sec HR (bpm): 73 SBP (mmHg): 155 DBP (mmHg): 77 Stage: RECOVERY Duration (min): 8 min : 0 sec HR (bpm): 70 SBP (mmHg): 155 DBP (mmHg): 77 Stage: RECOVERY Duration (min): 9 min : 0 sec HR (bpm): 63 SBP (mmHg): 143 DBP (mmHg): 79 Stage: RECOVERY Duration (min): 9 min : 11 sec HR (bpm): 62 SBP (mmHg): 143 DBP (mmHg): 79 Rest HR: 54 bpm Peak HR: 85 bpm Rest Sys BP: 138 mmHg Peak Sys BP: 155 mmHg Max Pred HR: 142 bpm % Max Pred HR: 60 % Target HR: 121 bpm Max RPP: 13,175 bpm*mmHg Termination Reason: Completed protocol Cardiac Symptoms: Shortness of breath, Chest tightness Total Time: 1 min : 0 sec Rest Roberto BP: 77 mmHg Peak Roberto BP: 77 mmHg Total Dose: 0.4 mg Resting ECG Sinus bradycardia. Stress ECG No ST changes. Arrhythmias None. Report Signatures
== END 2024-11-05 07:54 | disposition home or self-care (01) ==
PROVIDERS: PCP Internal Medicine; Visit Provider Internal Medicine Cardiovascular Disease
DX: Z01.810 Encounter for preprocedural cardiovascular examination (principal)
CPT/HCPCS: 78452; 93017; A9502; J2785

== ENCOUNTER 2024-12-14 03:57 | Day surgery (SDC) | payer MEDICARE, SELFPAY ==
[2024-12-11 12:54] VITALS: BMI 25.1
[2024-12-12 11:00] VITALS: BP 136/75; PULSE 52; RESP 19; O2SAT 98
[2024-12-14] VITALS (18 sets, daily range): BP systolic 114–157; BP diastolic 60–85; PULSE 51–83; RESP 14–23; TEMP 36.2; O2SAT 95–100; BMI 24.0
--- OUTSIDE RECORDS SUMMARY | 2024-12-14 04:00 | XMS_ITS | Encounter Summary ---
Author Organization [facility] Address [address] [place] [address] Care Team Providers Care Screen Printing Inspector Name Role Phone Unavailable Primary Care Provider Unavailabl e Encounter Details Date Type Department Care Team (Late st Contact Info) Description 06/26/2024 Lab Requisition [facility] - DermPath Lab [address] [place] [id number] Jerrod Balderrama MD [facility] DERMATOLOGY [address] [place] [phone] Neoplasm of uncertain behavior of skin Social History Tobacco Use Types Packs/Day Years Used Date Smoking Tobacco: Never Assessed Sex and Gender Information Value Date Recorded Sex Assigned at Not on file 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 Gender Identity Not on file Sexual Orientation Not on file documented as of this encounter Plan of Treatment Not on file documented as of this encounter Procedures Procedure Name Priority Date/Time Associated Diagnosis Comments DERMATOPATHOLOGY Routine 06/26/2024 12:0 0 AM CDT Neoplasm of uncertain behavior of skin documented in this encounter Results * DERMATOPATHOLOGY (06/26/2024 12:00 AM CDT) Case Report Dermatopathology Report Case: [id number] Authorizing Provider: Jerrod Balderrama MD Collected: 06/26/2024 12:00 AM Ordering Location: [facility] Physician [facility] - Received: 06/29/2024 04:39 PM [...] specimen consists of a shave biopsy measuring [id number] mm. Jar 0. 5:21 PM CDT DERMATOPATHOLOGY [...] characteristic determined by the Dermatopathology Laboratory at [facility], directed by Dr. Jd Adler. These tests need not be, and therefore are not, approved by the [place] Food and Drug Administration. The tests are used for clinical purposes. Billing Codes Specimen Charges Stain Charges 94723 1 5:21 PM CDT DERMATOPATHOLOGY LABORATORY Embedded Images 5:21 PM CDT DERMATOPATHOLOGY LABORATORY Pathology/Cytolog y TISSUE SPECIMEN FROM SKIN / Unknown 06/26/2024 06/29/2024 4:39 PM CDT Jerrod Balderrama MD LAB - PATHOLOGY/CYTOLOGY ISMAEL DRAKE Final Result DERMATOPATHOLOGY LABORATORY [facility] - Department of Dermatology [address], [address] [phone] documented in this encounter Visit Diagnoses Diagnosis Neoplasm of uncertain behavior of skin documented in this encounter
--- OUTSIDE RECORDS SUMMARY | 2024-12-14 04:00 | XMS_ITS | Clinical Summary ---
Author Organization [facility] Address [address] [place] [id number] Care Team Providers Care Cotton Ball Bagger Name Role Phone Unavailable Primary Care Provider [...] COVID-19 Vaccine ( - 2023-2 5 season) 2024 Influenza Adult (#1) 2024 Meningococcal B Vaccine Aged Out No l onger eligible based on patient's age to complete this topic Meningococcal Vaccine Aged Out No rui viral eligible based on patient's age to complete this topic RSV Immunizations Under 20 Months Aged Out No longer eligible based on patient's age to complete this topic
--- OUTSIDE RECORDS SUMMARY | 2024-12-14 04:00 | XMS_ITS | Clinical Summary ---
Author Organization [facility] [address] Address [address] [place] [address] Care Team Providers Care Pipelines Supervisor Name Role Phone Juan Carlos Jimenez MD Primary Care Provider [phone] Allergies Active Allergy Reactions Criticality Noted Date [...] Active Active Problems No known active problems Encounters Date Type Department Care Team Description 11/12/2024 Telephone [facility] Cardiology [address] [place] [address] Francisco Raymond MD from Last 3 Months Surgical History Surgery Date Site/Laterality Comments OTHER SURGICAL HISTORY CAD/ACS, Stent SHELBY LAD: OTHER SURGICAL HISTORY Thyroidectomy - Partial OTHER SURGICAL HISTORY Repair L. thumb & R. 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
--- OUTSIDE RECORDS SUMMARY | 2024-12-14 04:00 | XMS_ITS | Clinical Summary ---
Author Organization [facility] Address [address] [place] [address] Care Team Providers Care Digital Marketing Analyst Name Role Phone Unavailable Primary Care Provider Unavailabl e Source Comments [facility],non-owned Affiliates and Associated Physician Practices is amultiple site organization consisting of ambulatory clinics and hospital sitesin [place], [place], [place] and [place]. This disclosure is being madepursuant to the Care Everywhere program and may not contain all information available regarding this patient. 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 MANAGED MEDICARE ADV
[2024-12-14 07:44] LABS: Hematocrit 44.9 % (42.0-52.0); Hemoglobin 15.0 g/dL (14.0-18.0); Immature Granulocyte Percent A 0.4 % (0-0.5); Lymphocytes Absolute Auto 1.87 K/mm3 (0.9-3.2); Mean Corpuscular HGB Conc 33.4 g/dl (32-36); Mean Corpuscular Hemoglobin 31.4 pg (26-34); Mean Corpuscular Volume 94.1 fl (80-100); Nucleated Red Blood Cells Absolute Auto 0.000 K/mm3 (0.0-0.012); Nucleated Red Blood Cells Perc 0.0 % (0.0-0.2); Platelet Count Result 188 k/mm3 (150-375); Red Blood Count 4.77 M/mm3 (4.6-6.20); White Blood Count 6.7 K/mm3 (4.5-10.0)
--- NOTE | 2024-12-14 08:21 | P.SEDATION_ITS ---
Moderate Sedation Note-Pt Data Patient Data Allergies Allergy/AdvReac Type Severity Reaction Status Date / Time alprazolam Allergy Intermediate Swelling Verified 12/11/24 12:52 bacitracin Allergy Intermediate blisters Verified 12/11/24 12:52 bupropion Allergy Intermediate Rash Verified 12/11/24 12:52 neomycin Allergy Intermediate blisters Verified 12/11/24 12:52 polymyxin B Allergy Intermediate blisters Verified 12/11/24 12:52 aloe vera (From [place]bert Allergy Unknown Unknown Verified 12/11/24 12:52 Triple Action) dimethicone (From [place] Allergy Unknown Unknown Verified 12/11/24 12:52 Triple Action) latex Allergy Unknown blisters Verified 12/11/24 12:52 menthol (From [place] Allergy Unknown Unknown Verified 12/11/24 12:52 Triple Action) vitamin E (d-alpha Allergy Unknown Unknown Verified 12/11/24 12:52 tocopherol) (From [place] Triple Action) benzalkonium Allergy unknown Verified 10/12/24 09:40 Gramicidins Allergy Unknown Verified 12/11/24 12:52 BUPROPION HCL Allergy Intermediate SWELLING Uncoded 10/12/24 09:40 antibiotic Ointment Allergy Unknown Unknown Uncoded 10/12/24 09:40 Home Medications ?Medication ?Instructions ?Recorded ?Confirmed ?Type hydrocortisone 1 % topical cream 1 applic topical BID PRN eczema 01/17/19 12/11/24 History (Cortisone (hydrocortisone)) metoprolol succinate 25 mg See Rx Instructions .Route 04/06/24 12/11/24 Rx tablet,extended release 24 hr .COMPLEX #100 tabs sildenafil (pulm.hypertension) 20 See Rx Instructions PO DAILY PRN 05/20/24 12/11/24 Rx mg tablet sexual activity #60 tabs nitroglycerin 0.4 mg sublingual See Rx Instructions .R oute 07/07/24 12/11/24 Rx tablet .COMPLEX #25 tabs rosuvastatin 40 mg tablet See Rx Instructions .Route 0 08/07/24 12/11/24 Rx .COMPLEX #90 tabs fluticasone propionate 50 1 spray intranasal DAILY 30 days 08/24/24 12/11/24 Rx mcg/actuation nasal #16 grams spray,suspension ipratropium bromide 21 mcg (0.03 2 spray intranasal BI D 30 days #30 08/24/24 12/11/24 Rx %) nasal spray mL omeprazole 40 mg capsule,delayed 40 mg PO DAILY 30 day s #30 caps 09/28/24 12/11/24 Rx release losartan 25 mg tablet See Rx Instructions .Route 0 10/12/24 12/11/24 Rx .COMPLEX #90 tabs aspirin 81 mg capsule 81 mg PO DAILY 12/14/2412/02 History Sedation/Anesthesia: No previous sedation/anesthesia problems (including family history). [facility] Past Medical History Medical History (Updated 11/11/24 @ 15:01 by Kobe Mack DO) Nasal congestion Chronic sinusitis Allergic rhinitis with postnasal drip GERD (gastroesophageal reflux disease) Tobacco abuse Dyslipidemia Coronary artery disease Essential (primary) hypertension Surgical History Surgical History (Updated 10/12/24 @ 09:43 by Marleny Santiago MA) Hx of squamous cell carcinoma excision September 2024 Family History Family History Mother Family history of Alzheimer's disease Patient's mother is Sibling Family history of diabetes mellitus in first degree relative Patient's brother is Father Patient's father is Family history of Alzheimer's disease Social History Social History Social History: Caffeine-coffee Smoking packs per day: 0.5 Smoking cigarettes per day: 10.0 Years smoked: 60 Smoking pack-years: 30.00 Smoking status: Current every day smoker Tobacco type: cigarettes Second hand tobacco smoke exposure: No Alcohol intake: former Substance use: current Substance use type: marijuana Other substance usage details: used to be a heavy drinker, no drinks in 7-8 years Last use: 1 month ago Do You Feel Safe in your Home?: Yes Lack of Transportation: No Lack of Food: Never True Current Housing: I Have Housing Concerned About Future Housing: No Difficulty Paying Gas/Electric Bills: No Difficulty Paying for Meds: No Currently Unemployed: No Education: Trade/Vocational Certificate Difficulty w/ Childcare or Family Care: No Living arrangements: with family Additional living arrangements comments: Spiritual care concerns: No Mod Sed Physical Exam Physical Exam Pre Procedural Exam: Normal: Lungs, Heart Size, Heart Rate and Heart Rhythm Hours since solid foods: 12 Hours since liquid intake: 12 Mallampati Classification: class II Internal Medicine - PN: Obj Da Vital Signs Vital Signs: Vital Signs - 24 hr 12/14/24 07:27 Temperature 36.2 C L Pulse Rate 83 Respiratory Rate 15 Blood Pressure 127/80 Pulse Oximetry 99 Oxygen Delivery Room Air Labs 12/14/24 07:32 12/14/24 07:32 Labs: Laboratory Results - last 24 hr 12/14/24 07:32 WBC 6.7 RBC 4.77 Hgb 15.0 Hct 44.9 MCV 94.1 MCH 31.4 MCHC 33.4 RDW 13.7 Plt Count 188 MPV 10.1 Immature Gran % (Auto) 0.4 Neut % (Auto) 59.1 Lymph % (Auto) 28.0 [place] % (Auto) 9.7 H Eos % (Auto) 2.2 Baso % (Auto) 0.6 Lymph # (Auto) 1.87 [place] # (Auto) 0.7 H Eos # (Auto) 0.2 Baso # (Auto) 0.0 Abs Immat Gran (auto) 0.03 Absolute Neuts (auto) 3.9 Absolute Nucleated RBC 0.000 Nucleated RBC % 0.0 ASA Classification/Sedation ASA Classification/Sedation ASA Class: III Emergent: No Risks: Risks, benefits and alternatives explained and patient/family accepted plan for sedation. Patient re-evaluated immediately prior to sedation.
--- NOTE | 2024-12-14 08:21 | WPDHPUPDATE1 ---
History and Physical Update Update Date/Time: 12/14/24 08:21 History and Physical has been reviewed, including an updated exam of the patient. There are NO changes in the patient's condition. Risks, benefits, and alternatives have been discussed and questions answered. Patient agrees to proceed with procedure.
[2024-12-14 08:25] LABS: Anion Gap 10 mmol/L (4-12); Blood Urea Nitrogen 10 mg/dL (9-20); Calcium 9.7 mg/dL (8.4-10.2); Carbon Dioxide 24 mmol/L (22-30); Chloride 104 mmol/L (98-107); Estimated CRCL calculation 55 ml/min; Estimated Glomerular Filt Rate > 60; Glucose 119 mg/dL (65-110); Potassium 3.9 mmol/L (3.4-5.0); Sodium 138 mmol/L (137-145)
--- NOTE | 2024-12-14 09:32 | P.PCNCC_ITS ---
Cardiac Cath Procedure Note Date of procedure:: 12/14/24 Performing physician:: CATHETERIZATION LABORATORY REPORT Procedure Date: Referring Physician: Anesthesia: Versed and Fentanyl were ordered and given in my presence at 0844, procedure ended at 09. Supervision of nurse, Dora Beck monitored moderate sedation with 2mg Versed and 100mcg Fentanyl was provided for 41 minutes. Pre-op Diagnosis: Abnormal stress test Post-op Diagnosis: Abnormal stress test Procedure(s): Left heart catheterization with coronary angiography Access Site: Right radial artery Brief History and Clinical Indications: 71-year-old man with CAD status post PCI who will be undergoing general anesthesia for surgery underwent nuclear stress testing for preop cardiac clearance found to have abnormal nuclear stress test for which cardiac catheterization with possible PCI was recommended. All risks, benefits and alternatives to left heart catheterization with or without percutaneous coronary intervention was discussed at length with the patient. Risk of complications including but not limited to bleeding, infection, arrhythmia, stroke, worsening kidney function, blood loss, groin hematoma, limb loss, emergency coronary artery bypass grafting, and even were discussed with the patient and all questions were answered. The patient understood and wished to proceed. Time out called, patient name, date of , medical record number, allergies, procedure performed, identify Feed Mill Tender, patient and staff member concurred with accurate data, procedure carried on. Findings: LEFT HEART CATHETERIZATION FINDINGS: 1. Left main: The left main coronary artery as 30-40% stenosis at its ostium. 2. Left anterior descending: The LAD has an occluded stent in its midbody and reconstitutes distally. Prior to the occluded stent, there is a large diagonal branch with diffuse 10-20% calcific stenosis. 3. Left circumflex: The left circumflex artery and the main marginal branches have diffuse 10-20% stenosis. 4. Right coronary artery: The RCA is a large dominant vessel that has 40-50% s tenosis in its proximal body. The distal RCA has 10-20% stenosis. The PDA and PL branches have 10-20% stenosis. 5. Left ventricle: A. End-diastolic pressure 3 mmHg. B. LV gram deferred. C. No significant gradient across aortic valve on catheter pullback. 6. Opening AO pressure 102/63 and closing AO pressure 114/49 Description of Procedure: Informed consent signed and placed in the chart. Patient transferred to bolt labeler room. Prepped and draped in usual sterile fashion. 2% lidocaine injected subcutaneously in right wrist area. 22-gauge venipuncture catheter used to access the right radial artery with the Seldinger technique. 6-FR slender sheath placed in right radial artery. Nitroglycerin 200mcg, Verapamil 2.5mg, and Heparin 5000U was given intraarterial through the sheath. J wire advanced under fluoroscopy. 5F TIG diagnostic catheter crossed the aortic valve for LVEDP and aortic valve gradients. After pull back completed, the catheter was used to engage the RCA. 5F JL3.5 diagnostic catheter engaged Left Main Coronary Artery. Multiple orthogonal angiogram obtained and reviewed. Hemostasis was achieved by application of TR band. Procedure Description for PCI: Heparin was used for anticoagulation (ACT maintained above 250) Patient loaded with heparin at 70 units/kg. 6F EBU 3.5 guide catheter was used to intubate the LMCA. 0.014 runthrough coronary wire was passed in to the diagonal vessel. An IVUS catheter was passed into the diagonal branch and guide catheter was disengaged from the LMCA. Pull back was completed and did not reveal significant ostial LM disease. At this time, decision was made to attempt to cross the occluded LAD stent given no well visualized collateral flow and the vessel dose reconstitute distally. A runthrough wire was unable to crossed and switched out for a minamo wire. The minamo wire was supported by a micro rx catheter and was unable to cross. There were no AIRPLANE PILOT CHIEF wires available and no further attempts were made to cross the lesion. Follow-up angiograms did not reveal any complications or changes. Coronary wire and guide-catheter were removed. Pre-procedure - TOMI 0 flow Post-procedure - TOMI 0 flow No angiographic complications identified. Assessment: Occluded mid LAD stent Mild left main CAD Post Operative Condition: Stable No significant blood loss Disposition: Home Plan: The above findings were discussed with the referring physician. Continue aggressive medical therapy and risk factor modification. Francisco Raymond Interventional Cardiology
--- NOTE | 2024-12-14 11:25 | PM.IMHP ---
H&P: HPI History of Present Illness Date/Time: 12/14/24 11:25 Chief Complaint: Abnormal stress test Narrative: 71-year-old man with CAD status post PCI, hypertension, and hyperlipidemia during preop cardio clearance found to have a abnormal nuclear stress test for which a cardiac catheterization with possible PCI have been recommended. Review of Systems Cardiovascular: Cardiovascular: Reports as per HPI Respiratory: Respiratory: Reports as per HPI [facility] Past Medical History Medical History (Updated 11/11/24 @ 15:01 by Kobe Mack DO) Nasal congestion Chronic sinusitis Allergic rhinitis with postnasal drip GERD (gastroesophageal reflux disease) Tobacco abuse Dyslipidemia Coronary artery disease Essential (primary) hypertension Surgical History Surgical History (Updated 10/12/24 @ 09:43 by Marleny Santiago MA) Hx of squamous cell carcinoma excision September 2024 Family History Family History Mother Family history of Alzheimer's disease Patient's mother is Sibling Family history of diabetes mellitus in first degree relative Patient's brother is Father Patient's father is Family history of Alzheimer's disease Social History Social History Social History: Caffeine-coffee Smoking packs per day: 0.5 Smoking cigarettes per day: 10.0 Years smoked: 60 Smoking pack-years: 30.00 Smoking status: Current every day smoker Tobacco type: cigarettes Second hand tobacco smoke exposure: No Alcohol intake: former Substance use: current Substance use type: marijuana Other substance usage details: used to be a heavy drinker, no drinks in 7-8 years Last use: 1 month ago Do You Feel Safe in your Home?: Yes Lack of Transportation: No Lack of Food: Never True Current Housing: I Have Housing Concerned About Future Housing: No Difficulty Paying Gas/Electric Bills: No Difficulty Paying for Meds: No Currently Unemployed: No Education: Trade/Vocational Certificate Difficulty w/ Childcare or Family Care: No Living arrangements: with family Additional living arrangements comments: Spiritual care concerns: No Meds Home Medications and Allergies Home Medications ?Medication ?Instructions ?Recorded ?Confirmed ?Type hydrocortisone 1 % topical cream 1 applic topical BID PRN eczema 01/17/19 12/11/24 History (Cortisone (hydrocortisone)) metoprolol succinate 25 mg See Rx Instructions .Route 04/06/24 12/11/24 Rx tablet,extended release 24 hr .COMPLEX #100 tabs sildenafil (pulm.hypertension) 20 See Rx Instructions PO DAILY PRN 05/20/24 12/11/24 Rx mg tablet sexual activity #60 tabs nitroglycerin 0.4 mg sublingual See Rx Instructions .Route 07/07/24 12/11/24 Rx tablet .COMPLEX #25 tabs rosuvastatin 40 mg tablet See Rx Instructions .Route 08/07/24 12/11/24 Rx .COMPLEX #90 tabs fluticasone propionate 50 1 spray intranasal DAILY 30 days 08/24/24 12/11/24 Rx mcg/actuation nasal #16 grams spray,suspension ipratropium bromide 21 mcg (0.03 2 spray intranasal BID 30 days #30 08/24/24 12/11/24 Rx %) nasal spray mL omeprazole 40 mg capsule,delayed 40 mg PO DAILY 30 days #30 caps 09/28/24 12/11/24 Rx release losartan 25 mg tablet See Rx Instructions .Route 10/12/24 12/11/24 Rx .COMPLEX #90 tabs aspirin 81 mg capsule 81 mg PO DAILY 12/14/24 12/14/24 History Allergies Allergy/AdvReac Type Severity Reaction Status Date / Time alprazolam Allergy Intermediate Swelling Verified 12/11/24 12:52 bacitracin Allergy Intermediate blisters Verified 12/11/24 12:52 bupropion Allergy Intermediate Rash,Swelli Verified 12/14/24 08:39 ng neomycin Allergy Intermediate blisters Verified 12/11/24 12:52 polymyxin B Allergy Intermediate blisters Verified 12/11/24 12:52 aloe vera (From [place] Hebert Allergy Unknown Unknown Verified 12/11/24 12:52 Triple Action) dimethicone (From [place] Allergy Unknown Unknown Verified 12/11/24 12:52 Triple Action) latex Allergy Unknown blisters Verified 12/11/24 12:52 menthol (From [place] Allergy Unknown Unknown Verified 12/11/24 12:52 Triple Action) vitamin E (d-alpha Allergy Unknown Unknown Verified 12/11/24 12:52 tocopherol) (From [place] Triple Action) benzalkonium Allergy unknown Verified 10/12/24 09:40 Gramicidins Allergy Unknown Verified 12/11/24 12:52 antibiotic Ointment Allergy Unknown Unknown Uncoded 10/12/24 09:40 Vital Signs Vital Signs - 24 hr 12/14/24 07:27 12/14/24 09:30 12/14/24 09:30 Temperature 36.2 C L Pulse Rate 83 51 L Pulse Rate [Right Radial] 60 Respiratory Rate 15 19 Blood Pressure 127/80 136/68 Pulse Oximetry 99 95 Oxygen Delivery Room Air Room Air 12/14/24 09:45 12/14/24 10:00 12/14/24 10:00 Temperature Pulse Rate 61 Pulse Rate [Right Radial] 60 60 Respiratory Rate 17 Blood Pressure 142/67 H Pulse Oximetry 99 Oxygen Delivery Room Air 12/14/24 10:15 12/14/24 10:15 12/14/24 10:30 Temperature Pulse Rate 55 L Pulse Rate [Right Radial] 53 L 70 Respiratory Rate 14 Blood Pressure 129/74 Pulse Oximetry 99 Oxygen Delivery Room Air 12/14/24 10:30 12/14/24 10:45 12/14/24 10:45 Temperature Pulse Rate 76 54 L Pulse Rate [Right Radial] 54 L Respiratory Rate 17 15 Blood Pressure 150/60 H 132/66 Pulse Oximetry 99 99 Oxygen Delivery Room Air Room Air 12/14/24 11:15 12/14/24 11:15 Temperature Pulse Rate 54 L Pulse Rate [Right Radial] 54 L Respiratory Rate 16 Blood Pressure 135/78 Pulse Oximetry 98 Oxygen Delivery Room Air Exam Const: General: comfortable HENMT: Mouth: Yes moist mucous membranes Eyes: EOM: EOMs intact bilaterally Neck: Neck: no JVD Resp: Effort & Inspection: normal respiratory effort Cardio: Rate: regular rate Rhythm: regular rhythm Extrem: General: no pedal edema H&P: Results Labs Labs: Short CBC 12/14/24 Range/Units 07:32 WBC 6.7 (4.5-10.0) K/mm3 Hgb 15.0 (14.0-18.0) g/dL Hct 44.9 (42.0-52.0) % Plt Count 188 (150-375) k/mm3 [facility] 12/14/24 07:32 Sodium 138 Potassium 3.9 Chloride 104 Carbon Dioxide 24 BUN 10 Creatinine 0.97 Glucose 119 H Calcium 9.7 Assessment and Plan Assessment and plan (1) Abnormal nuclear stress test: Code(s): R94.39 - Abnormal result of other cardiovascular function study Status: Acute Plan Abnormal nuclear stress test -after we discussed the risks, benefits, alternatives to left heart catheterization with possible PCI, all questions were answered and patient agreed to proceed forward
== END 2024-12-14 13:55 | disposition home or self-care (01) ==
PROVIDERS: PCP Internal Medicine; Visit Provider Internal Medicine
PROC: 4A023N7 Measurement of Cardiac Sampling and Pressure, Left Heart, Percutaneous Approach (ICD-10-PCS; CPT 93452; principal; 2024-12-14 08:30)
PROC: (CPT 92920; 2024-12-14 08:30)
DX: I25.10 Atherosclerotic heart disease of native coronary artery without angina pectoris (principal); I10 Essential (primary) hypertension; K21.9 Gastro-esophageal reflux disease without esophagitis; E78.5 Hyperlipidemia, unspecified; J32.9 Chronic sinusitis, unspecified; F17.210 Nicotine dependence, cigarettes, uncomplicated; Z79.82 Long term (current) use of aspirin; Z85.828 Personal history of other malignant neoplasm of skin
CPT/HCPCS: 36415; 80048; 85025; 92920; 92978; 93458; C1753; C1769; C1887; C1894; J1644; J2003; J2250; J3010; J7030; J7040

== ENCOUNTER 2025-02-12 09:08 | Outpatient (CLI) | payer MEDICARE, SELFPAY ==
[2025-02-12 10:16] LABS: Cholesterol 144 mg/dL (0-200); HDL Direct 54 mg/dL; Triglycerides 77 mg/dL (<150)
[2025-02-12 13:49] LABS: Hemoglobin A1C 6.3 % (<5.7)
== END 2025-02-12 09:09 | disposition home or self-care (01) ==
LOC: ANHLAB 09:09
PROVIDERS: PCP Internal Medicine; Visit Provider Internal Medicine
DX: E78.5 Hyperlipidemia, unspecified (principal); R73.9 Hyperglycemia, unspecified
CPT/HCPCS: 36415; 80061; 83036